=== PATIENT | male | born 1960 | race Caucasian/White ===

== ENCOUNTER → 2016-04-04 | Outpatient (CLI) | payer OTHER ==
[2016-03-01 10:32] VITALS: BP 121/82
[~2016-04-04] MED LIST: ACET500T68 PO; ASPI-482 PO; CELE200C PO; ESOM40CA PO; HYDR-2762 PO; IOHEXOL 180 MG/ML 10 ML VIAL. ONE; methylPREDNISolone ACETATE 40 MG/ML VIAL. ONE; methylPREDNISolone ACETATE 80 MG/ML VIAL. ONE
--- NOTE | 2016-04-05 23:58 | PAIN ---
DATE OF SERVICE: 04/04/2016 DIAGNOSES: Cervical spondylosis with cervical degenerative disk disease and cervical radiculopathy. HISTORY OF PRESENT ILLNESS: The patient is a 56-year-old male who returns for followup status post cervical epidural steroid injections x 2 most recently on 01/10/2016. Patient did very well with this with about 90% improvement for about a month after the injection. The pain has been very slowly increasing at the base of the neck and radiating into the right shoulder and arm since that time ____ very gradual return. The patient reports it is increasing as the day goes on, but is sleeping better at night. The patient reports he has been using his right upper extremity much more easily and freely and without restriction, but it is becoming more noticeable now with pain when he does this. Patient reports his pain is anywhere from a 6 ____ a scale of 10, it is currently 6 on a scale of 10 today. Patient reports no new motor or sensory deficits or other complaints. PHYSICAL EXAMINATION: VITAL SIGNS: The patient blood pressure 141/100, pulse 81, respirations 18, temperature 98.2 degrees Fahrenheit, height is 5 feet 10 inches, weighs 221 pounds. GENERAL: Patient is awake, alert and oriented, appropriate, very pleasant demeanor. HEENT: Head shows normocephalic, atraumatic. Extraocular movements are intact and symmetrical. Oral cavity shows mucous membranes moist and pink. Dentition is intact. NECK: Shows anterior throat supple without palpable lymphadenopathy noted. Swallow reflex is symmetrical. CHEST: Shows normal on inspection. Breath sounds are clear to auscultation bilaterally. HEART: Shows S1 and S2 clear. ABDOMEN: Soft, nontender, nondistended. No palpable organomegaly is noted. No rebound or guarding demonstrated. BACK: Shows spine grossly midline. Cervical paraspinous musculature shows some moderate tenderness to palpation but only diffusely in the lower cervical distribution bilaterally as well as to the superior, medial and lateral trapezius. Again symmetrical without evidence of atrophy or hypertrophy. No asymmetry. No trigger points or radiation demonstrated. EXTREMITIES: Patient's upper extremities show deep tendon reflexes at 2+. The biceps and triceps tendon are equal. 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 Shoulder shrug is strong and intact with some minor pain reported in the right base of the neck and shoulder with resistance but no loss of strength. This is true with abduction of the shoulders at 90 degrees as well pain in the right side but without loss of strength on resistance. PLAN: Options were discussed with the patient at this time. The patient's old chart was reviewed as was his current medication regimen and updated. We will plan on the third cervical epidural steroid injection in this series with fluoroscopic guidance. Risks were again discussed including, but not limited to bleeding, infection, possibility of epidural hematoma, subsequent neurologic compromise, dural punctures, headaches, spinal cord and/or nerve damage, side effects of steroid medication and poor results regarding pain control. The patient understands and wishes to proceed. The patient will return to clinic in approximately 2 weeks for followup, was counseled on return appointment, activity level, and side effects to be aware of. DIAGNOSES: Cervical radiculopathy with cervical degenerative disk disease and cervical spine spondylosis. PROCEDURE: Cervical epidural steroid injection in translaminar approach at the C6-C7 level with C-arm fluoroscopic guidance under sterile prep and drape using local anesthetic. MEDICATIONS INJECTED: Depo-Medrol 120 mg plus 5 mL of preservative free normal saline. CONDITION AT DISCHARGE: Stable. The patient tolerated the procedure well, had no complications. ROLF ARNDT MD DR: YESI/suzette JOB#: [id number] / [id number]
== END | disposition home or self-care (01) ==
LOC: PNCL 10:25
PROVIDERS: ATTEND Anesthesiology
DX: M50.10 Cervical disc disorder with radiculopathy, unspecified cervical region (principal)
CPT/HCPCS: 62321; J1030; J1040

== ENCOUNTER → 2016-07-08 | Outpatient (CLI) | payer OTHER ==
[2016-03-01 10:32] VITALS: BP 121/82
[~2016-07-08] MED LIST changes: -IOHEXOL 180 MG/ML 10 ML VIAL. ONE; -methylPREDNISolone ACETATE 40 MG/ML VIAL. ONE; -methylPREDNISolone ACETATE 80 MG/ML VIAL. ONE
--- NOTE | 2016-07-09 01:24 | PAIN ---
DATE OF SERVICE: 07/08/2016 PROGRESS NOTE FOR PAIN CLINIC DIAGNOSES: 1. Cervical radiculopathy with cervical degenerative disk disease and cervical spondylosis. 2. Lumbar radiculopathy with lumbar degenerative disk disease and lumbar spondylosis. HISTORY OF PRESENT ILLNESS: The patient is a 56-year-old male who returns for followup status post cervical epidural steroid injections, last seen on 04/04/2016. The patient did very well, about 65% improvement. Chief complaint today, however, is low back and right lower extremity pain. The patient has had surgery about 20 years ago in the lumbar spine and is returning the same symptoms in the right posterior gluteus, posterior thigh, lateral thigh, lower leg and across the low back as well as pain in the neck and shoulders, but the pain in the low back and leg is much worse. The patient reports it is an 8 on a scale of 10, his neck is a 5 on a scale of 10. He did have an MRI scan dated 06/27/2016 of the lumbar spine showing previous right laminotomy at L5-S1 with degenerative disk disease and spondylitic disk protrusion at L5-S1 abutting the dural sac surrounding the descending right S1 nerve root, but without compression of the nerve. The patient also has a shallow left inferior foraminal disk protrusion at L4-L5 with mild inferior left foraminal narrowing. The patient reports it is much worse with standing, walking, changing positions, sitting for prolonged periods, has difficulty sleeping with the pain, not the result of any specific injury or accident he has had recently, but ____ gradually gotten worse with daily activities. PHYSICAL EXAMINATION: VITAL SIGNS: The patient's blood pressure 142/106, pulse 81, respirations are 20, temperature 98.3 degrees Fahrenheit, height is 5 feet 10 inches, weight is 217 pounds. GENERAL: The patient is awake, alert, oriented, appropriate, very pleasant demeanor. HEENT: Head shows normocephalic, atraumatic. Extraocular movements are intact and symmetrical. Oral cavity shows mucous membranes moist and pink. Dentition is intact. NECK: Shows anterior throat supple without palpable lymphadenopathy noted. Swallow reflex is symmetrical. Neck shows good rotational motion both laterally as well as extension and flexion without significant increase in pain. CHEST: Shows normal on inspection. Breath sounds clear to auscultation bilaterally. HEART: Shows S1 and S2 clear. ABDOMEN: Soft, nontender, nondistended. No palpable organomegaly is noted. No rebound or guarding demonstrated. BACK: Shows spine grossly in the midline. The well-healed surgical scars noted in the lumbar distribution. Lumbar paraspinous muscle shows some mild tenderness with palpation, but symmetrical on inspection. No radiation of pain, no tenderness over the sacrum or sacroiliac regions. The patient has good rotational motion of the lumbar spine, both laterally greater than 10 degrees right and left as well as extension greater than 10 degrees, forward flexion 45 degrees without pain reported. EXTREMITIES: Lower extremities show deep tendon reflexes at 1+ in the patellar and tendo calcaneus tendons. The patient has well-healed surgical scars over both knees. Motor exam is strong with 5/5 dorsiflexion, extension, quadriceps and hamstring flexion. Peripheral pulses are 1+ posterior tibial and dorsalis pedis pulses. With straight leg raise, the patient shows some mild increase in pain at about 45 degrees raise on the right side with radiation to posterior thigh, this is relieved with knee flexion. Left side is negative. Options were discussed with the patient. The patient's old chart was reviewed as his current medication regimen updated. Current review of systems updated today as well. We will preauthorize the patient for a lumbar caudal approach epidural steroid injection. The patient may benefit from additional cervical injections in the future as well, but his main complaint is the lumbar radiculopathy in the right leg ____ again with MRI scan findings as shown and the patient is not able to decrease his pain significantly with walking and stretching exercises that he has been doing. We will preauthorize for a caudal approach epidural steroid injection. The patient also will follow up with his primary physician regarding his blood pressure as his diastolic is still elevated and he reports he has an appointment coming up with the primary as well. We will wait for preauthorization and proceed with a caudal epidural steroid injection at that time. ROLF ARNDT MD DR: YESI/suzette JOB#: [id number] / [id number]
== END | disposition home or self-care (01) ==
LOC: PNCL 08:22
PROVIDERS: ATTEND Anesthesiology
DX: M47.22 Other spondylosis with radiculopathy, cervical region (principal); M50.10 Cervical disc disorder with radiculopathy, unspecified cervical region; M47.26 Other spondylosis with radiculopathy, lumbar region; M51.16 Intervertebral disc disorders with radiculopathy, lumbar region
CPT/HCPCS: 99212

== ENCOUNTER → 2016-07-30 | Outpatient (CLI) | payer OTHER ==
[2016-03-01 10:32] VITALS: BP 121/82
[~2016-07-30] MED LIST changes: +IOHEXOL 180 MG/ML 10 ML VIAL. ONE; +methylPREDNISolone ACETATE 40 MG/ML VIAL. ONE; +methylPREDNISolone ACETATE 80 MG/ML VIAL. ONE
--- NOTE | 2016-07-31 06:33 | PAIN ---
DATE OF SERVICE: 07/30/2016 PROGRESS NOTE FOR PAIN CLINIC DIAGNOSES: 1. Lumbar radiculopathy with lumbar degenerative disk disease, lumbar spondylosis. 2. Cervical radiculopathy with cervical degenerative disk disease and cervical spondylosis. HISTORY OF PRESENT ILLNESS: The patient is a 56-year-old male who returns for followup status post evaluation and previous cervical epidural steroid injections. The patient is having significant pain in his low back and lower extremities, right greater than left. He has been preauthorized for his caudal approach epidural steroid injections and would like to proceed with that today. The patient is also having some significant pain in the base of his neck and shoulders, also at the back of the head, causing some headaches, increased pain, more in the left shoulder than in the right, but in the upper extremities as it had been previously. The patient reports his pain anywhere from a 9 on a scale of 10 with the neck, to a 7 in his low back and is at its best a 5 in both regions. The patient reports tingling, burning, aching, sharp, radiating both in the neck and shoulder as well as the low back and legs. The patient reports no new motor or sensory deficits; however, no new bowel or bladder incontinence or other complaints. PHYSICAL EXAMINATION: VITAL SIGNS: Today, the patient's blood pressure is 141/97, pulse 68, respirations 18, temperature is 98.2 degrees Fahrenheit, height is 5 feet 10 inches, weight is 221 pounds. GENERAL: The patient is awake, alert, oriented, appropriate, very pleasant demeanor. HEENT: Shows normocephalic, atraumatic. Extraocular movements are intact and symmetrical. Oral cavity, his mucous membranes are moist and pink. Dentition is intact. NECK: Shows anterior throat supple without palpable lymphadenopathy noted. Swallow reflex is symmetrical. CHEST: Shows normal on inspection. Breath sounds clear to auscultation bilaterally. HEART: Shows S1 and S2 clear. No murmurs auscultated. ABDOMEN: Soft, nontender, nondistended. No palpable organomegaly is noted. BACK: Shows spine grossly in the midline. Cervical paraspinous muscles show some moderate tenderness to palpation in the cervical, into the medial and inferior aspect of the paraspinous muscles, also superior medial trapezius bilaterally, slightly worse on the left than the right with palpation, but no radiation. Low back shows well healed surgical scars, some moderate tenderness to palpation in the lower lumbar distribution diffusely in the paraspinous muscles only. EXTREMITIES: Show upper extremity deep tendon reflexes at 2+, lower extremities are 1+ patellar and tendo calcaneus tendons. 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 Lower extremities show 5/5 dorsiflexion, extension, quadriceps and hamstring flexion. PLAN: Options were discussed with the patient. We will proceed with a caudal approach epidural steroid injection today with fluoroscopic guidance. Risks were again discussed including, but not limited to bleeding, infection, possibility of epidural hematoma and subsequent neurological compromise, dural puncture, headaches, spinal cord and/or nerve damage, side effects of steroid medication and poor results regarding pain control. The patient understands and wishes to proceed. The patient will return to clinic in approximately 2 weeks. We discussed treating cervical radicular symptoms at that time. We will preauthorize the patient for a cervical epidural steroid injection for his next visit as well. DIAGNOSIS: Lumbar radiculopathy with lumbar degenerative disk disease, lumbar spondylosis. PROCEDURE: Caudal approach epidural steroid injection using C-arm fluoroscopic guidance under sterile prep and drape using local anesthetic. MEDICATIONS INJECTED: 120 mg Depo-Medrol plus 10 mL preservative-free normal saline and 2 mL Isovue for contrast. CONDITION AT DISCHARGE: Stable. The patient tolerated the procedure well, had no complications. ROLF ARNDT MD DR: YESI/suzette JOB#: [id number] / [id number]
== END | disposition home or self-care (01) ==
LOC: PNCL 09:15
PROVIDERS: ATTEND Anesthesiology
DX: M50.10 Cervical disc disorder with radiculopathy, unspecified cervical region (principal); M51.16 Intervertebral disc disorders with radiculopathy, lumbar region; Z82.49 Family history of ischemic heart disease and other diseases of the circulatory system
CPT/HCPCS: 62323; J1030; J1040

== ENCOUNTER → 2016-08-26 | Outpatient (CLI) | payer OTHER ==
[2016-03-01 10:32] VITALS: BP 121/82
== END | disposition home or self-care (01) ==
LOC: PNCL 08:04
PROVIDERS: ATTEND Anesthesiology
DX: M50.30 Other cervical disc degeneration, unspecified cervical region (principal); M47.812 Spondylosis without myelopathy or radiculopathy, cervical region; Z82.49 Family history of ischemic heart disease and other diseases of the circulatory system
CPT/HCPCS: 62321; J1030; J1040

== ENCOUNTER → 2016-09-10 | Outpatient (CLI) | payer OTHER ==
[2016-03-01 10:32] VITALS: BP 121/82
== END | disposition home or self-care (01) ==
LOC: PNCL 07:33
PROVIDERS: ATTEND Anesthesiology
DX: M51.16 Intervertebral disc disorders with radiculopathy, lumbar region (principal); M47.26 Other spondylosis with radiculopathy, lumbar region; M96.1 Postlaminectomy syndrome, not elsewhere classified; M50.10 Cervical disc disorder with radiculopathy, unspecified cervical region; M47.22 Other spondylosis with radiculopathy, cervical region; Z82.49 Family history of ischemic heart disease and other diseases of the circulatory system
CPT/HCPCS: 62323; J1030; J1040

== ENCOUNTER 2016-09-28 12:46 | Inpatient (IN) | payer OTHER ==
[~2016-09-28] VITALS: Ht 177.8 cm; Wt 97.5 kg
[~2016-09-28 12:46] MED LIST changes: -IOHEXOL 180 MG/ML 10 ML VIAL. ONE; -methylPREDNISolone ACETATE 40 MG/ML VIAL. ONE; -methylPREDNISolone ACETATE 80 MG/ML VIAL. ONE
[2016-09-28 13:46] LABS: BASO # 0.1 x10^3/uL (0.0-0.2); BASO % 1 % (0-3); EOS % 3 % (0-3); HEMATOCRIT 41.4 % (39.0-53.0); LYMPH # 1.8 x10^3/uL (1.0-4.8); LYMPH % 33 % (24-48); MEAN CORPUSCULAR HEMOGLOBIN 32 pg (25-35); MEAN CORPUSCULAR HGB CONC 34 g/dL (31-37); MEAN CORPUSCULAR VOLUME 94 fL (79-100); MONO % 7 % (0-9); NEUT % 57 % (31-73); PLATELET COUNT 252 x10^3/uL (140-400); RED BLOOD COUNT 4.41 x10^6/uL (4.30-5.70); RED CELL DISTRIBUTION WIDTH 13.8 % (11.5-14.5); WHITE BLOOD COUNT 5.5 x10^3/uL (4.0-11.0)
[2016-09-28 13:57] LABS: CALCIUM 8.8 mg/dL (8.5-10.1); GFR 77.9
[2016-09-28 14:03] LABS: INR 0.9 (0.8-1.1); PROTHROMBIN TIME PATIENT 11.6 SEC (11.7-14.0)
[2016-09-28 14:04] LABS: ALBUMIN 4.2 g/dL (3.4-5.0); ALBUMIN/GLOBULIN RATIO 1.3 (1.0-1.7); TOTAL BILIRUBIN 0.3 mg/dL (0.2-1.0); TOTAL PROTEIN 7.5 g/dL (6.4-8.2)
--- NOTE | 2016-09-28 14:15 | RAD ---
Indication right-sided face numbness and tingling in the right arm. Noncontrast images of the head were obtained. No prior imaging of the head is available. The calvarium appears unremarkable. The visualized paranasal sinuses appear normal. There is no subdural or epidural hematoma. There is no mass or midline shift. No hemorrhage is seen. No acute intracranial finding is apparent. IMPRESSION: No acute intracranial finding seen . PQRS Compliance Statement: One or more of the following individualized dose reduction techniques were utilized for this examination: 1. Automated exposure control 2. Adjustment of the mA and/or kV according to patient size 3. Use of iterative reconstruction technique
--- NOTE | 2016-09-28 14:33 | PHYS DOC ---
Past Medical History Past Medical History: Arthritis, GERD, Other Additional Past Medical Histor: DVT Past Surgical History: Knee Replacement, Other Additional Past Surgical Histo: right shoulder, lower back, 2 hand surgeries Alcohol Use: Occasionally Drug Use: None Adult General Chief Complaint Chief Complaint: numbness HPI HPI Patient is a 56 year old male, retired , who presents with a complaint of numbness on the right side of his face. Patient states that about 10:00 today he developed some numbness and tingling of his right arm, no pain. He didn 't think much of it because he has some issues with his back and neck related to pinched nerves. He had a lumbar discectomy in 1997 and occasionally has some numbness and tingling of his right foot and posterior ankle, also sometimes has some weakness of his right leg. He does see someone in the pain management clinic and gets epidural steroid injections. He has some neck pain and arthritis. Then about noon he began to feel that the right side of his face felt "strange" and felt like he had tingling and numbness. This included his forehead, cheek, and lower face. Then he decided to come in and on his way here also noted some tingling and numbness of his left arm and hand. At this time, his bilateral arm and hand tingling and numbness is better or gone but his face feels the same. Patient and his state that he did not have any difficulty with slurred speech, no trouble finding a word, no trouble with his gait during any of this. As mentioned, the patient does have a history of cervical and lumbar nerve issues but has not had any CVA or TIA, has not had any facial symptoms in the past. He did have a blood clot in his right leg after knee surgery in the past. Patient takes aspirin 81 mg, gabapentin and Celebrex for nerve pain daily. He is not on an antihypertensive. PCP Dr. Palomino at [facility] Review of Systems Review of Systems Constitutional: Denies fever or chills [] Eyes: Denies change in visual acuity, redness, or eye pain [] HENT: Denies nasal congestion or sore throat [] Respiratory: Denies cough or shortness of breath [] Cardiovascular: Denies chest pain GI: Denies abdominal pain, nausea, vomiting, bloody stools or diarrhea [] : Denies dysuria or hematuria [] Musculoskeletal: Denies back pain or joint pain [] Integument: Denies rash or skin lesions [] Neurologic: As in history of present illness Allergies Allergies Allergies Coded Allergies Type Severity Reaction Last Updated Verified No Known Drug Allergies 12/28/14 No Physical Exam Physical Exam Constitutional: Well developed, well nourished, no acute distress, non-toxic appearance. Alert, mentating normally, normal speech. Initial blood pressure was 172/104, recheck 134/100 HENT: Normocephalic, atraumatic, bilateral external ears normal, oropharynx moist, nose normal. [] Eyes: EOMI, conjunctiva normal, no discharge. [] Neck: Normal range of motion, no stridor. [] Cardiovascular:Heart rate regular rhythm, no murmur [] Lungs & Thorax: Bilateral breath sounds clear to auscultation [] Abdomen: Bowel sounds normal, soft, no tenderness, no masses, no pulsatile masses. [] Skin: Warm, dry, no erythema, no rash. [] Extremities: No tenderness, no cyanosis, no clubbing, ROM intact, no edema. [] Neurologic: Alert and oriented X 3, normal motor function, normal sensory function, no focal deficits noted. Cranial nerves II through XII intact with the exception that the patient states the right side of his face is numb to light touch including forehead, cheek, and lower face. There is no facial asymmetry. Forehead elevates evenly. Smile is symmetrical. No tongue deviation. Shoulders elevate evenly. No pronator drift. The patient is able to lift both legs independently and hold them up against resistance. Dorsiflexion of the great toe 5 over 5 and equal bilaterally. NIHSS by me is 1. Patient gets a 1 for numbness of the face. There is no numbness of the extremities. There is no strength deficit whatsoever on my testing. Speech is normal. Current Patient Data Vital Signs Vital Signs Date Time Temp Pulse Resp B/P (MAP) Pulse Ox O2 Delivery O2 Flow Rate FiO2 09/28/16 13:24 76 17 134/100 (111) 96 Room Air 09/28/16 12:53 98.4 98.4 Lab Values Laboratory Tests Test 09/28/16 13:32 White Blood Count 5.5 x10^3/uL (4.0-11.0) Red Blood Count 4.41 x10^6/uL (4.30-5.70) Hemoglobin 14.0 g/dL (13.0-17.5) Hematocrit 41.4 % (39.0-53.0) Mean Corpuscular Volume 94 fL (79-100) Mean Corpuscular Hemoglobin 32 pg (25-35) Mean Corpuscular Hemoglobin Concent 34 g/dL (31-37) Red Cell Distribution Width 13.8 % (11.5-14.5) Platelet Count 252 x10^3/uL (140-400) Neutrophils (%) (Auto) 57 % (31-73) Lymphocytes (%) (Auto) 33 % (24-48) Monocytes (%) (Auto) 7 % (0-9) Eosinophils (%) (Auto) 3 % (0-3) Basophils (%) (Auto) 1 % (0-3) Neutrophils # (Auto) 3.2 x10^3uL (1.8-7.7) Lymphocytes # (Auto) 1.8 x10^3/uL (1.0-4.8) Monocytes # (Auto) 0.4 x10^3/uL (0.0-1.1) Eosinophils # (Auto) 0.1 x10^3/uL (0.0-0.7) Basophils # (Auto) 0.1 x10^3/uL (0.0-0.2) Prothrombin Time 11.6 SEC (11.7-14.0) L Prothrombin Time INR 0.9 (0.8-1.1) PTT 28 SEC (24-38) Sodium Level 144 mmol/L (136-145) Potassium Level 4.0 mmol/L (3.5-5.1) Chloride Level 104 mmol/L (98-107) Carbon Dioxide Level 30 mmol/L (21-32) Anion Gap 10 (6-14) Blood Urea Nitrogen 20 mg/dL (8-26) Creatinine 1.0 mg/dL (0.7-1.3) Estimated GFR (Cockcroft-Gault) 77.9 BUN/Creatinine Ratio 20 (6-20) Glucose Level 107 mg/dL (70-99) H Calcium Level 8.8 mg/dL (8.5-10.1) Total Bilirubin 0.3 mg/dL (0.2-1.0) Aspartate Amino Transferase (AST) 25 U/L (15-37) Alanine Aminotransferase (ALT) 43 U/L (16-63) Alkaline Phosphatase 74 U/L (46-116) Troponin I Quantitative < 0.017 ng/mL (0.000-0.055) Total Protein 7.5 g/dL (6.4-8.2) Albumin 4.2 g/dL (3.4-5.0) Albumin/Globulin Ratio 1.3 (1.0-1.7) Laboratory Tests 09/28/16 13:32 Laboratory Tests 09/28/16 13:32 EKG EKG 12-lead EKG read by me. Sinus rhythm. Heart rate 77. There are no acute ST or T wave changes indicative of ischemia or infarction. No STEMI. No rhythm disturbance. 1303 [] Radiology/Procedures Radiology/Procedures CT scan of the head read by the radiologist. No acute findings. [] Course & Med Decision Making Course & Med Decision Making Pertinent Labs and Imaging studies reviewed. (See chart for details) 56-year-old man in good general health presents with symptoms of numbness and tingling which he first noticed in his right arm, then may be his right leg, then the right side of his face, then his left arm and hand. On my evaluation his only numbness and tingling was the right side of his face. There is no strength deficit whatsoever. I discussed with the patient and his that we will check a CT scan and labs, they're agreeable to that. CT scan, labs normal, negative, nonrevealing. I rechecked the patient and he continues to have subjective numbness of the right side of his face but no findings of his right arm or leg or elsewhere. His face continues to be symmetrical without any weakness anywhere. I considered whether this patient would be a thrombolytic candidate and he is not. The patient's only complaint and finding at the time of my evaluation is numbness of the right side of his face, no weakness whatsoever, no speech disturbance, no other finding. NIH is 1. For the complaint of isolated numbness and no actual neurologic deficit I would not consider this patient a thrombolytic candidate if this were to be ischemic in nature. I believe the patient's symptoms may represent a very small CVA or TIA. I discussed with the patient and his admission to the hospital for further evaluation, further testing, neurologic consultation, and in case more symptoms were to develop or symptoms were to worsen area they're agreeable to that plan. I discussed the case with Dr. Sands, [facility]. She will admit the patient. I wrote bridge orders. I discussed the case with Dr. Weaver, neurology. He will see the patient. He recommended a full dose of aspirin which I ordered. He recommended an MRI of the brain which I ordered. [] Dragon Disclaimer Dragon Disclaimer This electronic medical record was generated, in whole or in part, using a voice recognition dictation system. Departure Departure Impression: Primary Impression: CVA (cerebral vascular accident) Disposition: ADMITTED INPATIENT Admitting Physician: Deepak Sands Condition: STABLE Referrals: DELANEY ACEVEDO DO (PCP) SEDRICK HARTLEY MD Sep 28, 2016 14:33
[2016-09-28] MEDS ORDERED: ASPIRIN CHEWABLE 81 MG TABLET. PO ONE (15:15)
--- NOTE | 2016-09-28 16:04 | RAD ---
MRI Brain without contrast History: Right-sided face numbness, question stroke at 10:00 AM, right-sided weakness Technique: Multiplanar, multisequential noncontrast MR imaging was performed of the brain. Contrast: None Comparison: None Findings: There is no evidence of an acute infarct or cytotoxic edema. The ventricles, sulci, and cisterns are within normal limits in size and configuration. There is no significant midline shift, mass effect, or focal abnormal extra-axial fluid collection. Very minimal FLAIR hyperintense signal near the frontal horns may be seen in asymptomatic individuals. Otherwise there is no significant focal signal abnormality of the brain parenchyma allowing for artifact. There is preservation of the major intracranial flow-voids at the skull base. There is minimal thickening of the right mastoid air cells inferiorly.The cerebellar tonsils are normal in location. There is no significant abnormality of the pineal gland or pituitary gland. There is very minimal patchy bilateral ethmoid air cell and left maxillary sinus mucosal thickening. There is preserved marrow signal of the clivus. Impression: 1. There is no evidence of recent infarct or intracranial mass effect, no significant intracranial abnormality. Electronically signed by: Bj Fernandes MD (09/28/2016 4:01 PM) [facility]
[2016-09-28 16:21] VITALS: BP 141/100
--- NOTE | 2016-09-28 16:51 | EKG ---
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
[2016-09-28] MEDS ORDERED: ACET650S19 PO (17:15)
[2016-09-28] MEDS ORDERED: ACET-704 PO (17:19)
[2016-09-28] MEDS ORDERED: GABA-586 PO (17:19)
[2016-09-28] MEDS ORDERED: OMEP20TA63 PO (17:19)
[2016-09-28] MEDS ORDERED: GABA-585 PO (17:19)
--- NOTE | 2016-09-28 18:09 | PDOC1 ---
History and Physical Date of Admission Date of Admission 09/28/16 Identification/Chief Complaint Chief Complaint right arm and facial numbness Problems: Source Source: Chart review, Patient History of Present Illness History of Present Illness HPI Patient is a 56 year old male, retired , chronic back pain post sx, chronic neck pain wo sx but receiving injection comes to ER FOR first time right facial and right arm numbness today. He said he this am, he felt some right arm numbness, with some weakness. Later felt right facial numbness, no headache, vision or hearing loss, no speech or swallow problem. He had a lumbar discectomy in 1997 and occasionally has some numbness and tingling of his right foot and posterior ankle, also sometimes has some weakness of his right leg. He did have a blood clot in his right leg after knee surgery in the past, on baby ASA. head ct, MRI neg. Past Medical History Past Medical History chronic back and neck pain Past Surgical History Past Surgical History: Total knee replacement Family History Family History: Hypertension Social History Smoke: No ALCOHOL: none Drugs: None Current Problem List Problem List Problems Medical Problems: (1) CVA (cerebral vascular accident) Status: Acute Current Medications Current Medications Current Medications Medications (Trade) Dose Ordered Sig/Spencer Start Time Stop Time Status Last Admin Dose Admin Aspirin (Children'S Aspirin) 324 mg 1X ONCE 09/28/16 15:15 09/28/16 15:16 DC 09/28/16 15:08 324 MG Allergies Allergies Allergies Coded Allergies Type Severity Reaction Last Updated Verified No Known Drug Allergies 12/28/14 No ROS Review of System CONSTITUTIONAL: No fever or chills EYES: No recent changes SKIN: No rash or itching CARDIOVASCULAR: No chest pain, syncope, palpitations, or edema RESPIRATORY: No SOB or cough GASTROINTESTINAL: No nausea, vomiting or abdominal pain NEUROLOGICAL: No headaches or weakness ENDOCRINE: No cold or heat intolerance GENITOURINARY: No urgency or frequency of urination MUSCULOSKELETAL: No back pain or joint pain LYMPHATICS: No enlarged lymph nodes PSYCHIATRIC: No anxiety or depression Physical Exam Physical Exam GEN.: No apparent distress. Alert and oriented. HEENT: Head is normocephalic, atraumatic NECK: Supple. LUNGS: Clear to auscultation. HEART: RRR, S1, S2 present. Peripheral pulses intact ABDOMEN: Soft, nontender. Positive bowel sounds. EXTREMITIES: Without any cyanosis. NEUROLOGIC: Normal speech, normal tone. right face and right arm numbness, very mild right arm weakness compared to left side PSYCHIATRIC: Normal affect, normal mood. SKIN: No ulcerations Vitals Vitals Vital Signs Date Time Temp Pulse Resp B/P (MAP) Pulse Ox O2 Delivery O2 Flow Rate FiO2 09/28/16 16:21 98.1 72 20 141/100 (114) 96 Room Air 98.1 Labs Labs Laboratory Tests Test 09/28/16 13:32 White Blood Count 5.5 x10^3/uL (4.0-11.0) Red Blood Count 4.41 x10^6/uL (4.30-5.70) Hemoglobin 14.0 g/dL (13.0-17.5) Hematocrit 41.4 % (39.0-53.0) Mean Corpuscular Volume 94 fL (79-100) Mean Corpuscular Hemoglobin 32 pg (25-35) Mean Corpuscular Hemoglobin Concent 34 g/dL (31-37) Red Cell Distribution Width 13.8 % (11.5-14.5) Platelet Count 252 x10^3/uL (140-400) Neutrophils (%) (Auto) 57 % (31-73) Lymphocytes (%) (Auto) 33 % (24-48) Monocytes (%) (Auto) 7 % (0-9) Eosinophils (%) (Auto) 3 % (0-3) Basophils (%) (Auto) 1 % (0-3) Neutrophils # (Auto) 3.2 x10^3uL (1.8-7.7) Lymphocytes # (Auto) 1.8 x10^3/uL (1.0-4.8) Monocytes # (Auto) 0.4 x10^3/uL (0.0-1.1) Eosinophils # (Auto) 0.1 x10^3/uL (0.0-0.7) Basophils # (Auto) 0.1 x10^3/uL (0.0-0.2) Prothrombin Time 11.6 SEC (11.7-14.0) Prothromb Time International Ratio 0.9 (0.8-1.1) Activated Partial Thromboplast Time 28 SEC (24-38) Sodium Level 144 mmol/L (136-145) Potassium Level 4.0 mmol/L (3.5-5.1) Chloride Level 104 mmol/L (98-107) Carbon Dioxide Level 30 mmol/L (21-32) Anion Gap 10 (6-14) Blood Urea Nitrogen 20 mg/dL (8-26) Creatinine 1.0 mg/dL (0.7-1.3) Estimated GFR (Cockcroft-Gault) 77.9 BUN/Creatinine Ratio 20 (6-20) Glucose Level 107 mg/dL (70-99) Calcium Level 8.8 mg/dL (8.5-10.1) Total Bilirubin 0.3 mg/dL (0.2-1.0) Aspartate Amino Transf (AST/SGOT) 25 U/L (15-37) Alanine Aminotransferase (ALT/SGPT) 43 U/L (16-63) Alkaline Phosphatase 74 U/L (46-116) Troponin I Quantitative < 0.017 ng/mL (0.000-0.055) Total Protein 7.5 g/dL (6.4-8.2) Albumin 4.2 g/dL (3.4-5.0) Albumin/Globulin Ratio 1.3 (1.0-1.7) Laboratory Tests Test 09/28/16 13:32 White Blood Count 5.5 x10^3/uL (4.0-11.0) Red Blood Count 4.41 x10^6/uL (4.30-5.70) Hemoglobin 14.0 g/dL (13.0-17.5) Hematocrit 41.4 % (39.0-53.0) Mean Corpuscular Volume 94 fL (79-100) Mean Corpuscular Hemoglobin 32 pg (25-35) Mean Corpuscular Hemoglobin Concent 34 g/dL (31-37) Red Cell Distribution Width 13.8 % (11.5-14.5) Platelet Count 252 x10^3/uL (140-400) Neutrophils (%) (Auto) 57 % (31-73) Lymphocytes (%) (Auto) 33 % (24-48) Monocytes (%) (Auto) 7 % (0-9) Eosinophils (%) (Auto) 3 % (0-3) Basophils (%) (Auto) 1 % (0-3) Neutrophils # (Auto) 3.2 x10^3uL (1.8-7.7) Lymphocytes # (Auto) 1.8 x10^3/uL (1.0-4.8) Monocytes # (Auto) 0.4 x10^3/uL (0.0-1.1) Eosinophils # (Auto) 0.1 x10^3/uL (0.0-0.7) Basophils # (Auto) 0.1 x10^3/uL (0.0-0.2) Prothrombin Time 11.6 SEC (11.7-14.0) Prothromb Time International Ratio 0.9 (0.8-1.1) Activated Partial Thromboplast Time 28 SEC (24-38) Sodium Level 144 mmol/L (136-145) Potassium Level 4.0 mmol/L (3.5-5.1) Chloride Level 104 mmol/L (98-107) Carbon Dioxide Level 30 mmol/L (21-32) Anion Gap 10 (6-14) Blood Urea Nitrogen 20 mg/dL (8-26) Creatinine 1.0 mg/dL (0.7-1.3) Estimated GFR (Cockcroft-Gault) 77.9 BUN/Creatinine Ratio 20 (6-20) Glucose Level 107 mg/dL (70-99) Calcium Level 8.8 mg/dL (8.5-10.1) Total Bilirubin 0.3 mg/dL (0.2-1.0) Aspartate Amino Transf (AST/SGOT) 25 U/L (15-37) Alanine Aminotransferase (ALT/SGPT) 43 U/L (16-63) Alkaline Phosphatase 74 U/L (46-116) Troponin I Quantitative < 0.017 ng/mL (0.000-0.055) Total Protein 7.5 g/dL (6.4-8.2) Albumin 4.2 g/dL (3.4-5.0) Albumin/Globulin Ratio 1.3 (1.0-1.7) VTE Prophylaxis Ordered VTE Prophylaxis Devices: Yes VTE Pharmacological Prophylaxi: Yes Assessment/Plan Assessment/Plan right facial and right arm numbness, 2/2 neuropathy? chronic neck pain chronic back pain post sx chronic bl leg neuropathy with numbness and some weakness GERD h/o DVT not on AC htn plan: pt not on HTN meds, if BP cont high tmr, WILL add po meds mri brain neg will do cervical MRI cont home meds asa dvt ppx drug tox check lipid panel, vitb12 BETTY MORALES MD Sep 28, 2016 18:09
[2016-09-28] MEDS ORDERED: ACETAMINOPHEN 325 MG TABLET. PO PRN (18:15)
[2016-09-28] MEDS ORDERED: ONDANSETRON PF 4 MG/2 ML VIAL. IV PRN (18:15)
[2016-09-28] MEDS ORDERED: NON FORMULARY ITEM (Gabapentin 300 MG) PO PRN (18:15)
[2016-09-28] MEDS ORDERED: MORPHINE SULFATE 2 MG/ML DISP.SYRIN. IV PRN (18:15)
[2016-09-28] MEDS ORDERED: hydrALAZINE 20 MG/ML VIAL. IVP PRN (18:15)
[2016-09-28] MEDS ORDERED: DOCUSATE SODIUM 100 MG CAPSULE. PO PRN (18:15)
[2016-09-28] MEDS: PANTOPRAZOLE 40 MG TABLET.DR. PO SCH (18:30)
[2016-09-28] MEDS: CELECOXIB 200 MG CAPSULE. PO SCH (18:30)
[2016-09-28] MEDS: ENOXAPARIN 40 MG/0.4 ML SYRINGE. SQ SCH (18:32)
[2016-09-28 19:49] VITALS: BP 131/93
[2016-09-28] MEDS: traMADol 50 MG TABLET PO PRN (20:31)
[2016-09-28] MEDS: GABAPENTIN 300 MG CAPSULE. PO SCH (20:31)
[2016-09-28 23:22] VITALS: BP 120/82
[2016-09-29 00:47] LABS: BARBITURATES NEG (NEG); BENZODIAZEPINES NEG (NEG); CANNABINOIDS NEG (NEG); COCAINE NEG (NEG); METHADONE NEG (NEG); OPIATES NEG (NEG); PHENCYCLIDINE NEG (NEG)
[2016-09-29 03:50] VITALS: BP 136/87
[2016-09-29 05:13] LABS: BASO % 1 % (0-3); EOS % 4 % (0-3); HEMATOCRIT 39.6 % (39.0-53.0); HEMOGLOBIN 13.4 g/dL (13.0-17.5); LYMPH # 1.8 x10^3/uL (1.0-4.8); LYMPH % 44 % (24-48); MEAN CORPUSCULAR HEMOGLOBIN 32 pg (25-35); MEAN CORPUSCULAR HGB CONC 34 g/dL (31-37); MEAN CORPUSCULAR VOLUME 94 fL (79-100); MONO % 10 % (0-9); NEUT % 42 % (31-73); PLATELET COUNT 218 x10^3/uL (140-400); RED BLOOD COUNT 4.23 x10^6/uL (4.30-5.70); RED CELL DISTRIBUTION WIDTH 13.8 % (11.5-14.5); WHITE BLOOD COUNT 4.2 x10^3/uL (4.0-11.0)
[2016-09-29 05:25] LABS: CALCIUM 8.5 mg/dL (8.5-10.1); CREATININE 0.9 mg/dL (0.7-1.3); GFR 87.9; POTASSIUM 4.4 mmol/L (3.5-5.1)
[2016-09-29 05:35] LABS: CHOLESTEROL/HDL RATIO 5.4
[2016-09-29] MEDS: traMADol 50 MG TABLET PO PRN ×3 (05:39→21:11)
[2016-09-29 07:25] VITALS: BP 135/93
[2016-09-29] MEDS: GABAPENTIN 300 MG CAPSULE. PO SCH ×3 (08:32→21:10)
[2016-09-29] MEDS: ASPIRIN ENTERIC COATED 81 MG TABLET.DR. PO SCH (08:32)
[2016-09-29] MEDS: CELECOXIB 200 MG CAPSULE. PO SCH (08:32)
[2016-09-29 10:35] VITALS: BP 128/86
--- NOTE | 2016-09-29 12:11 | PDOC ---
PROGRESS NOTES Chief Complaint Chief Complaint right facial and right arm numbness, 2/2 neuropathy? chronic neck pain chronic back pain post sx chronic bl leg neuropathy with numbness and some weakness GERD h/o DVT not on AC htn HLD plan: mri brain neg will do cervical MRI cont home meds asa dvt ppx drug tox check lipid panel, vitb12 neuro consult pending History of Present Illness History of Present Illness feels bl facial numbness now right arm numbness better no ext weakness Vitals Vitals Vital Signs Date Time Temp Pulse Resp B/P (MAP) Pulse Ox O2 Delivery O2 Flow Rate FiO2 09/29/16 10:35 98.4 79 16 128/86 (100) 96 Room Air 98.4 Physical Exam General: Alert, Oriented X3, Cooperative Heart: Regular rate, Normal S1, Normal S2 Lungs: Clear, Wheezing Abdomen: Normal bowel sounds, Soft Extremities: No clubbing, No cyanosis Skin: No rashes Labs LABS Laboratory Tests Test 09/28/16 13:32 09/28/16 22:40 09/29/16 04:30 White Blood Count 5.5 x10^3/uL (4.0-11.0) 4.2 x10^3/uL (4.0-11.0) Red Blood Count 4.41 x10^6/uL (4.30-5.70) 4.23 x10^6/uL (4.30-5.70) Hemoglobin 14.0 g/dL (13.0-17.5) 13.4 g/dL (13.0-17.5) Hematocrit 41.4 % (39.0-53.0) 39.6 % (39.0-53.0) Mean Corpuscular Volume 94 fL (79-100) 94 fL (79-100) Mean Corpuscular Hemoglobin 32 pg (25-35) 32 pg (25-35) Mean Corpuscular Hemoglobin Concent 34 g/dL (31-37) 34 g/dL (31-37) Red Cell Distribution Width 13.8 % (11.5-14.5) 13.8 % (11.5-14.5) Platelet Count 252 x10^3/uL (140-400) 218 x10^3/uL (140-400) Neutrophils (%) (Auto) 57 % (31-73) 42 % (31-73) Lymphocytes (%) (Auto) 33 % (24-48) 44 % (24-48) Monocytes (%) (Auto) 7 % (0-9) 10 % (0-9) Eosinophils (%) (Auto) 3 % (0-3) 4 % (0-3) Basophils (%) (Auto) 1 % (0-3) 1 % (0-3) Neutrophils # (Auto) 3.2 x10^3uL (1.8-7.7) 1.7 x10^3uL (1.8-7.7) Lymphocytes # (Auto) 1.8 x10^3/uL (1.0-4.8) 1.8 x10^3/uL (1.0-4.8) Monocytes # (Auto) 0.4 x10^3/uL (0.0-1.1) 0.4 x10^3/uL (0.0-1.1) Eosinophils # (Auto) 0.1 x10^3/uL (0.0-0.7) 0.2 x10^3/uL (0.0-0.7) Basophils # (Auto) 0.1 x10^3/uL (0.0-0.2) 0.0 x10^3/uL (0.0-0.2) Prothrombin Time 11.6 SEC (11.7-14.0) Prothromb Time International Ratio 0.9 (0.8-1.1) Activated Partial Thromboplast Time 28 SEC (24-38) Sodium Level 144 mmol/L (136-145) 143 mmol/L (136-145) Potassium Level 4.0 mmol/L (3.5-5.1) 4.4 mmol/L (3.5-5.1) Chloride Level 104 mmol/L (98-107) 105 mmol/L (98-107) Carbon Dioxide Level 30 mmol/L (21-32) 31 mmol/L (21-32) Anion Gap 10 (6-14) 7 (6-14) Blood Urea Nitrogen 20 mg/dL (8-26) 21 mg/dL (8-26) Creatinine 1.0 mg/dL (0.7-1.3) 0.9 mg/dL (0.7-1.3) Estimated GFR (Cockcroft-Gault) 77.9 87.9 BUN/Creatinine Ratio 20 (6-20) Glucose Level 107 mg/dL (70-99) 107 mg/dL (70-99) Calcium Level 8.8 mg/dL (8.5-10.1) 8.5 mg/dL (8.5-10.1) Total Bilirubin 0.3 mg/dL (0.2-1.0) Aspartate Amino Transf (AST/SGOT) 25 U/L (15-37) Alanine Aminotransferase (ALT/SGPT) 43 U/L (16-63) Alkaline Phosphatase 74 U/L (46-116) Troponin I Quantitative < 0.017 ng/mL (0.000-0.055) Total Protein 7.5 g/dL (6.4-8.2) Albumin 4.2 g/dL (3.4-5.0) Albumin/Globulin Ratio 1.3 (1.0-1.7) Urine Opiates Screen Neg (NEG) Urine Methadone Screen Neg (NEG) Urine Barbiturates Neg (NEG) Urine Phencyclidine Screen Neg (NEG) Urine Amphetamine/Methamphetamine Neg (NEG) Urine Benzodiazepines Screen Neg (NEG) Urine Cocaine Screen Neg (NEG) Urine Cannabinoids Screen Neg (NEG) Urine Ethyl Alcohol Neg (NEG) Triglycerides Level 212 mg/dL (0-150) Cholesterol Level 232 mg/dL (0-200) LDL Cholesterol, Calculated 147 mg/dL (0-100) VLDL Cholesterol, Calculated 42 mg/dL (0-40) Non-HDL Cholesterol Calculated 189 mg/dL (0-129) HDL Cholesterol 43 mg/dL (40-60) Cholesterol/HDL Ratio 5.4 Review of Systems Review of Systems no fever, chills, sob or chest pain Assessment and Plan Assessmemt and Plan Problems Medical Problems: (1) CVA (cerebral vascular accident) Status: Acute Problems: Comment Review of Relevant I have reviewed the following items geoffrey (where applicable) has been applied. Labs Laboratory Tests Test 09/28/16 13:32 09/28/16 22:40 09/29/16 04:30 White Blood Count 5.5 x10^3/uL (4.0-11.0) 4.2 x10^3/uL (4.0-11.0) Red Blood Count 4.41 x10^6/uL (4.30-5.70) 4.23 x10^6/uL (4.30-5.70) Hemoglobin 14.0 g/dL (13.0-17.5) 13.4 g/dL (13.0-17.5) Hematocrit 41.4 % (39.0-53.0) 39.6 % (39.0-53.0) Mean Corpuscular Volume 94 fL (79-100) 94 fL (79-100) Mean Corpuscular Hemoglobin 32 pg (25-35) 32 pg (25-35) Mean Corpuscular Hemoglobin Concent 34 g/dL (31-37) 34 g/dL (31-37) Red Cell Distribution Width 13.8 % (11.5-14.5) 13.8 % (11.5-14.5) Platelet Count 252 x10^3/uL (140-400) 218 x10^3/uL (140-400) Neutrophils (%) (Auto) 57 % (31-73) 42 % (31-73) Lymphocytes (%) (Auto) 33 % (24-48) 44 % (24-48) Monocytes (%) (Auto) 7 % (0-9) 10 % (0-9) Eosinophils (%) (Auto) 3 % (0-3) 4 % (0-3) Basophils (%) (Auto) 1 % (0-3) 1 % (0-3) Neutrophils # (Auto) 3.2 x10^3uL (1.8-7.7) 1.7 x10^3uL (1.8-7.7) Lymphocytes # (Auto) 1.8 x10^3/uL (1.0-4.8) 1.8 x10^3/uL (1.0-4.8) Monocytes # (Auto) 0.4 x10^3/uL (0.0-1.1) 0.4 x10^3/uL (0.0-1.1) Eosinophils # (Auto) 0.1 x10^3/uL (0.0-0.7) 0.2 x10^3/uL (0.0-0.7) Basophils # (Auto) 0.1 x10^3/uL (0.0-0.2) 0.0 x10^3/uL (0.0-0.2) Prothrombin Time 11.6 SEC (11.7-14.0) Prothromb Time International Ratio 0.9 (0.8-1.1) Activated Partial Thromboplast Time 28 SEC (24-38) Sodium Level 144 mmol/L (136-145) 143 mmol/L (136-145) Potassium Level 4.0 mmol/L (3.5-5.1) 4.4 mmol/L (3.5-5.1) Chloride Level 104 mmol/L (98-107) 105 mmol/L (98-107) Carbon Dioxide Level 30 mmol/L (21-32) 31 mmol/L (21-32) Anion Gap 10 (6-14) 7 (6-14) Blood Urea Nitrogen 20 mg/dL (8-26) 21 mg/dL (8-26) Creatinine 1.0 mg/dL (0.7-1.3) 0.9 mg/dL (0.7-1.3) Estimated GFR (Cockcroft-Gault) 77.9 87.9 BUN/Creatinine Ratio 20 (6-20) Glucose Level 107 mg/dL (70-99) 107 mg/dL (70-99) Calcium Level 8.8 mg/dL (8.5-10.1) 8.5 mg/dL (8.5-10.1) Total Bilirubin 0.3 mg/dL (0.2-1.0) Aspartate Amino Transf (AST/SGOT) 25 U/L (15-37) Alanine Aminotransferase (ALT/SGPT) 43 U/L (16-63) Alkaline Phosphatase 74 U/L (46-116) Troponin I Quantitative < 0.017 ng/mL (0.000-0.055) Total Protein 7.5 g/dL (6.4-8.2) Albumin 4.2 g/dL (3.4-5.0) Albumin/Globulin Ratio 1.3 (1.0-1.7) Urine Opiates Screen Neg (NEG) Urine Methadone Screen Neg (NEG) Urine Barbiturates Neg (NEG) Urine Phencyclidine Screen Neg (NEG) Urine Amphetamine/Methamphetamine Neg (NEG) Urine Benzodiazepines Screen Neg (NEG) Urine Cocaine Screen Neg (NEG) Urine Cannabinoids Screen Neg (NEG) Urine Ethyl Alcohol Neg (NEG) Triglycerides Level 212 mg/dL (0-150) Cholesterol Level 232 mg/dL (0-200) LDL Cholesterol, Calculated 147 mg/dL (0-100) VLDL Cholesterol, Calculated 42 mg/dL (0-40) Non-HDL Cholesterol Calculated 189 mg/dL (0-129) HDL Cholesterol 43 mg/dL (40-60) Cholesterol/HDL Ratio 5.4 Laboratory Tests Test 09/28/16 13:32 09/28/16 22:40 09/29/16 04:30 White Blood Count 5.5 x10^3/uL (4.0-11.0) 4.2 x10^3/uL (4.0-11.0) Red Blood Count 4.41 x10^6/uL (4.30-5.70) 4.23 x10^6/uL (4.30-5.70) Hemoglobin 14.0 g/dL (13.0-17.5) 13.4 g/dL (13.0-17.5) Hematocrit 41.4 % (39.0-53.0) 39.6 % (39.0-53.0) Mean Corpuscular Volume 94 fL (79-100) 94 fL (79-100) Mean Corpuscular Hemoglobin 32 pg (25-35) 32 pg (25-35) Mean Corpuscular Hemoglobin Concent 34 g/dL (31-37) 34 g/dL (31-37) Red Cell Distribution Width 13.8 % (11.5-14.5) 13.8 % (11.5-14.5) Platelet Count 252 x10^3/uL (140-400) 218 x10^3/uL (140-400) Neutrophils (%) (Auto) 57 % (31-73) 42 % (31-73) Lymphocytes (%) (Auto) 33 % (24-48) 44 % (24-48) Monocytes (%) (Auto) 7 % (0-9) 10 % (0-9) Eosinophils (%) (Auto) 3 % (0-3) 4 % (0-3) Basophils (%) (Auto) 1 % (0-3) 1 % (0-3) Neutrophils # (Auto) 3.2 x10^3uL (1.8-7.7) 1.7 x10^3uL (1.8-7.7) Lymphocytes # (Auto) 1.8 x10^3/uL (1.0-4.8) 1.8 x10^3/uL (1.0-4.8) Monocytes # (Auto) 0.4 x10^3/uL (0.0-1.1) 0.4 x10^3/uL (0.0-1.1) Eosinophils # (Auto) 0.1 x10^3/uL (0.0-0.7) 0.2 x10^3/uL (0.0-0.7) Basophils # (Auto) 0.1 x10^3/uL (0.0-0.2) 0.0 x10^3/uL (0.0-0.2) Prothrombin Time 11.6 SEC (11.7-14.0) Prothromb Time International Ratio 0.9 (0.8-1.1) Activated Partial Thromboplast Time 28 SEC (24-38) Sodium Level 144 mmol/L (136-145) 143 mmol/L (136-145) Potassium Level 4.0 mmol/L (3.5-5.1) 4.4 mmol/L (3.5-5.1) Chloride Level 104 mmol/L (98-107) 105 mmol/L (98-107) Carbon Dioxide Level 30 mmol/L (21-32) 31 mmol/L (21-32) Anion Gap 10 (6-14) 7 (6-14) Blood Urea Nitrogen 20 mg/dL (8-26) 21 mg/dL (8-26) Creatinine 1.0 mg/dL (0.7-1.3) 0.9 mg/dL (0.7-1.3) Estimated GFR (Cockcroft-Gault) 77.9 87.9 BUN/Creatinine Ratio 20 (6-20) Glucose Level 107 mg/dL (70-99) 107 mg/dL (70-99) Calcium Level 8.8 mg/dL (8.5-10.1) 8.5 mg/dL (8.5-10.1) Total Bilirubin 0.3 mg/dL (0.2-1.0) Aspartate Amino Transf (AST/SGOT) 25 U/L (15-37) Alanine Aminotransferase (ALT/SGPT) 43 U/L (16-63) Alkaline Phosphatase 74 U/L (46-116) Troponin I Quantitative < 0.017 ng/mL (0.000-0.055) Total Protein 7.5 g/dL (6.4-8.2) Albumin 4.2 g/dL (3.4-5.0) Albumin/Globulin Ratio 1.3 (1.0-1.7) Urine Opiates Screen Neg (NEG) Urine Methadone Screen Neg (NEG) Urine Barbiturates Neg (NEG) Urine Phencyclidine Screen Neg (NEG) Urine Amphetamine/Methamphetamine Neg (NEG) Urine Benzodiazepines Screen Neg (NEG) Urine Cocaine Screen Neg (NEG) Urine Cannabinoids Screen Neg (NEG) Urine Ethyl Alcohol Neg (NEG) Triglycerides Level 212 mg/dL (0-150) Cholesterol Level 232 mg/dL (0-200) LDL Cholesterol, Calculated 147 mg/dL (0-100) VLDL Cholesterol, Calculated 42 mg/dL (0-40) Non-HDL Cholesterol Calculated 189 mg/dL (0-129) HDL Cholesterol 43 mg/dL (40-60) Cholesterol/HDL Ratio 5.4 Medications Current Medications Aspirin (Children'S Aspirin) 324 mg 1X ONCE PO Last administered on 09/28/16 15:08; Start 09/28/16 at 15:15; Stop 09/28/16 at 15:16; Status DC Aspirin (Ecotrin) 81 mg DAILY08 PO Last administered on 09/29/16 08:32; Start 09/29/16 at 08:00 Celecoxib (CeleBREX) 200 mg DAILY PO Last administered on 09/29/16 08:32; Start 09/28/16 at 18:30 Non-Formulary Medication 300 mg PRN TID PRN PO PAIN; Start 09/28/16 at 18:15; Stop 09/28/16 at 18:15; Status DC Pantoprazole Sodium (Protonix) 40 mg DAILYBFRSUP PO ; Start 09/28/16 at 18:30 Acetaminophen (Tylenol) 650 mg PRN Q6HRS PRN PO FEVER Last administered on 03:09; Start 09/28/16 at 18:15 Ondansetron HCl (Zofran) 4 mg PRN Q6HRS PRN IV NAUSEA/VOMITING; Start 09/28/16 at 18:15 Morphine Sulfate 2 mg PRN Q2HR PRN IV PAIN; Start 09/28/16 at 18:15 Tramadol HCl (Ultram) 50 mg PRN Q6HRS PRN PO PAIN Last administered on 05:39; Start 09/28/16 at 18:15 Hydralazine HCl (Apresoline) 10 mg PRN Q4HRS PRN IVP ELEVATED BP, SEE COMMENTS ; Start 09/28/16 at 18:15 Docusate Sodium (Colace) 100 mg PRN DAILY PRN PO CONSTIPATION; Start 09/28/16 at 18:15 Enoxaparin Sodium (Lovenox 40mg Syringe) 40 mg Q24H SQ Last administered on 09/28 18:32; Start 09/28/16 at 18:30 Gabapentin (Neurontin) 300 mg TID PO Last administered on 09/29/16 08:32; Start 09/28/16 at 21:00 Active Scripts Active Reported Tylenol With Codeine #3 Tablet (Acetaminophen/Codeine Phosphate) 1 Each Tablet 1 Tab PO PRN DAILY PRN Gabapentin 300 Mg Capsule 300 Mg PO PRN TID PRN Gabapentin 100 Mg Capsule 100 Mg PO PRN TID PRN Prilosec Otc (Omeprazole Magnesium) 20 Mg Tablet. 40 Mg PO DAILYBFRSUP Acetaminophen 650 Mg/20.3 Ml Solution 650 Mg PO PRN Q6HRS PRN Aspir 81 (Aspirin) 81 Mg Tablet. 1 Tab PO DAILY Celebrex (Celecoxib) 200 Mg Capsule 1 Cap PO DAILY Vitals/I & O Vital Sign - Last 24 Hours 09/28/16 09/28/16 09/28/16 09/28/16 12:53 13:24 16:00 16:21 Temp 98.4 98.1 98.4 98.1 Pulse 83 76 72 Resp 17 17 20 B/P (MAP) 172/104 (126) 134/100 (111) 141/100 (114) Pulse Ox 98 96 96 O2 Delivery Room Air Room Air Room Air Room Air 09/28/16 09/28/16 09/28/16 09/28/16 16:21 19:30 19:49 20:31 Temp 98.1 98.3 98.1 98.3 Pulse 72 74 Resp 20 18 B/P (MAP) 141/100 (114) 131/93 (106) Pulse Ox 96 95 95 O2 Delivery Room Air Room Air Room Air Room Air 09/28/16 09/29/16 09/29/16 09/29/16 23:22 03:50 05:39 06:41 Temp 97.9 97.8 97.9 97.8 Pulse 61 78 Resp 18 16 B/P (MAP) 120/82 (95) 136/87 (103) Pulse Ox 96 97 97 97 O2 Delivery Room Air Room Air Room Air Room Air 09/29/16 09/29/16 09/29/16 07:25 08:00 10:35 Temp 97.9 98.4 97.9 98.4 Pulse 80 79 Resp 16 16 B/P (MAP) 135/93 (107) 128/86 (100) Pulse Ox 95 96 O2 Delivery Room Air Room Air Room Air Intake and Output 09/28/16 09/28/16 09/29/16 15:00 23:00 07:00 Intake Total 200 ml Output Total 200 ml Balance 200 ml -200 ml BETTY MORALES MD Sep 29, 2016 12:11
[2016-09-29 14:39] VITALS: BP 137/90
--- NOTE | 2016-09-29 14:57 | RAD ---
Indication TIA. Grayscale color Doppler and spectral imaging was performed. The examination was targeted to the carotid bifurcations. On the right there is no significant plaquing. Color Doppler images do not suggest significant turbulence. The common carotid waveform and velocities are normal. The external carotid has a normal appearance. The internal carotid waveform and velocities are normal. The vertebral is patent. The subclavian artery is unremarkable. On the left there is no significant plaquing. The color Doppler images do not suggest significant turbulence. The common carotid waveform and velocities are normal. The external carotid has a normal appearance. The internal carotid waveform and velocities are normal. The vertebral is patent and demonstrates normal directional flow. The subclavian artery is unremarkable. IMPRESSION: No evidence of hemodynamically significant stenosis at either carotid bifurcation. Stenosis 0-50%. Note: Stenosis calculations for CT, MR and conventional angiography are based upon determination of the distal ICA diameter in accordance with the NASCET methodology. Stenosis calculations for doppler studies are derived from validated velocity criteria which are known to correlate with NASCET methodology of determining stenosis.
[2016-09-29] MEDS: PANTOPRAZOLE 40 MG TABLET.DR. PO SCH (16:54)
[2016-09-29] MEDS: ENOXAPARIN 40 MG/0.4 ML SYRINGE. SQ SCH (16:59)
[2016-09-29 19:49] VITALS: BP 141/95
[2016-09-29 23:21] VITALS: BP 125/86
--- NOTE | 2016-09-29 23:23 | CONS ---
DATE OF CONSULTATION: 09/29/2016 ATTENDING PHYSICIAN: Magalie Sands M.D. REASON FOR CONSULTATION: Stroke symptoms. HISTORY OF PRESENT ILLNESS: The patient is a 56-year-old right-handed male who noticed some right facial numbness and arm numbness, starting yesterday. The symptoms improved. The patients states that last night symptoms shifted over to the left face and arm. He has longstanding neck pain and bilateral arm numbness off and on, but it has never involved the face. He also has had some low back pain. There is no history of stroke, seizure, or head injury. He has not figured out any inciting or mitigating features except that the cervical spine pain has been improved with epidural injections. He also has lumbar pain as already stated, and a recent lumbar MRI did show L4-L5 and L5-S1 disk disease. He is being referred to a neurosurgeon. PAST MEDICAL HISTORY: Hypertension. Negative for diabetes and he states that he has had normal cholesterol levels in the past. PAST SURGICAL HISTORY: He has had numerous orthopedic surgeries as well as lumbar spine surgery. ALLERGIES: None known. MEDICATIONS: I have reviewed his list. FAMILY HISTORY: Parents of old age. SOCIAL HISTORY: . Occasional alcohol. No tobacco. REVIEW OF SYSTEMS: No fevers, chills, weight loss, dyspnea, angina, hematochezia, melena, dysuria. A 14-point review systems is otherwise negative. PHYSICAL EXAMINATION: GENERAL: Well-developed, well-nourished white male in no acute distress. HEENT: Normocephalic and atraumatic. NECK: Supple without bruit. NEUROLOGIC: Mental status is intact. Cranial nerve examination reveals full visual conrad to confrontation, equally reactive pupils, intact extraocular movements, and there is no facial asymmetry. Palate elevates and tongue protrudes in midline. Reflexes are 1+ with flexor plantar responses. Strength is 5/5. Lvuvqi-zdxp-wlajth is intact. Gait is normal. Sensory exam is intact for light touch and pinprick. IMAGING DATA: I reviewed his MRI of the brain, which shows no abnormality. IMPRESSION: Symptoms are worrisome for transient ischemic attack, but most likely this is referred symptoms from his cervical spondylosis. Note that symptoms have been bilateral. Stroke is much less likely as is transient ischemic attack. Note also that he is already on a daily aspirin and his cholesterol has been normal. RECOMMENDATIONS: 1. Agree with cervical MRI. 2. Echocardiogram. 3. Carotid Dopplers. 4. Continue aspirin. 5. Aim for discharge tomorrow. Thank you for letting me help with the patient's care. RICHARD VELEZ MD DR: ANDRES/suzette JOB#: [id number] / [id number] [place]
[2016-09-30 03:33] VITALS: BP 114/81
--- NOTE | 2016-09-30 04:02 | ACF ---
Admission Forms Criteria TELEMETRY CARE Telemetry Admission Guidelines (Place 'X' for any and all applicable criteria): Admission to telemetry [A] may be indicated for ANY ONE of the following(1)(2)(3 )(4)(5): [ ]I. Cardiac disease, including ANY ONE of the following (9)(10)(11)(12)(13 ): [ ]a) Postacute OR [ ]b) Low-risk patients with ST-segment elevation OR who have undergone successful percutaneous coronary intervention [ ]c) Unstable angina [ ]d) Suspected OR (until it is ruled out) [ ]e) Post cardiac surgery (first 48 to 72 hours unless complications occur) [ ]f) Acute arrhythmias (including significant tachycardia or bradycardia) [B] [ ]g) Firing of an implantable cardioverter defibrillator [C] [ ]h) Suspected pacemaker or implantable cardioverter defibrillator malfunction (10) [ ]i) New administration or adjustment of an antiarrhythmic drug [D ] [ ]j) Child admitted for acute congestive heart failure [ ]j) Long QT syndrome [ ]k) Advanced heart block (eg, second-degree Mobitz type II, third- degree heart block) [ ]l) Acute myocarditis or pericarditis [ ]m) Short-term (ambulatory or inpatient) monitoring after a cardiac procedure as indicated by ANY ONE of the following [E]: [ ]i) Electrophysiologic studies [ ]ii) Percutaneous coronary intervention with stent placement [ ]iii) Pacemaker placement with cardiac conduction defect [ ]iv) Implantable cardiac defibrillator placement [ ]II. Drug overdose or poisoning with substance that causes arrhythmias or QT prolongation (eg, phenothiazines, sympathomimetic agents, cyclic antidepressants, digitalis, antiarrhythmic drugs)(15) [ ]III. Short-term (ambulatory or inpatient) monitoring after therapeutic or diagnostic procedure requiring conscious sedation or anesthesia (eg, endoscopy, elective cardioversion) [X ]IV. Acute cerebrovascular even[F](18) [ ]V. Massive blood transfusion (eg, at least 10 units of packed red blood cells in 24 hours) [ ]. Variceal bleeding after endoscopy, sclerotherapy, or IV vasopressin [ ]VII. Uncorrected electrolyte abnormalities associated with an increased risk of dangerous arrhythmia [G]; examples include [ ]a) Hyperkalemia with attributable ECG changes [ ]b) Potassium greater than 6.5 mmol/L (mEq/L) in a patient without history of chronic renal disease [ ]c) Prolonged QT attributed to hypokalemia, hypomagnesemia, or hypocalcemia [ ]VIII.Unexplained syncope or other neurologic event suspected of being due to arrhythmia due to a finding that increases risk; examples include(19)(20)(21): [ ]a) High-risk ECG findings (eg, bifascicular block, bradycardia, abnormal QT interval, ventricular pre- excitation) [ ]b) History of previous syncope due to arrhythmia [ ]c) Abnormal ventricular function (eg, reduced ejection fraction ) [ ]d) Exertional or supine syncope [ ]e) Concerning syncope characteristics (eg, sudden loss of consciousness without prodrome) [ ]f) Family history of sudden [ ]g) Use of arrhythmogenic medication [ ]h) Suspected cardiac ischemia [ ]i) Known channelopathy (eg, long QT syndrome, Brugada syndrome, or catecholaminergic paroxysmal ventricular tachycardia) [ ]j) Known structural heart disease (eg, hypertrophic cardiomyopathy , severe valvular disease) [ ]k) Palpitations preceding syncope The original [employer] content created by [employer] has been revised. The portions of the content which have been revised are identified through the use of italic text or in bold, and [email or web address] has neither reviewed nor approved the modified material. All other unmodified content is copyright [employer]. Please see references footnoted in the original [employer] edition 2016 Admission Criteria Met?: Yes MASSIMO GREER Sep 30, 2016 04:02
[2016-09-30 07:00] VITALS: BP 143/93
[2016-09-30] MEDS: GABAPENTIN 300 MG CAPSULE. PO SCH (07:59)
[2016-09-30] MEDS: CELECOXIB 200 MG CAPSULE. PO SCH (07:59)
[2016-09-30] MEDS: traMADol 50 MG TABLET PO PRN (07:59)
[2016-09-30] MEDS: ASPIRIN ENTERIC COATED 81 MG TABLET.DR. PO SCH (07:59)
--- NOTE | 2016-09-30 10:00 | PDOC ---
PROGRESS NOTES Assessment Problems Medical Problems: (1) CVA (cerebral vascular accident) Status: Acute Symptoms are worrisome for transient ischemic attack, but most likely this is referred symptoms from his cervical spondylosis. Note that symptoms have been bilateral. Stroke is much less likely as is transient ischemic attack. Note also that he is already on a daily aspirin and his cholesterol has been normal. Plan Await cervical MRI, scanner was not working yesterday. Awake echocardiogram Continue aspirin. Aim for discharge today, and he can have MRI of cervical spine as outpatient if our scanner is not working. Subjective Still has a little bit of numbness in the hands and continued neck pain. Also, his chronic back pain is worse after sleeping in the hospital bed. Objective Vital Signs Date Time Temp Pulse Resp B/P (MAP) Pulse Ox O2 Delivery O2 Flow Rate FiO2 09/30/16 09:01 93 Room Air 09/30/16 07:00 98.1 84 18 143/93 (110) 98.1 Intake and Output 09/30/16 07:00 Intake Total 1040 ml Output Total 2 ml Balance 1038 ml Intake Oral 1040 ml Output Urine Total 2 ml # Voids 7 # Bowel Movements 1 PHYSICAL EXAM Alert. Oriented to time, place and person. PERRL. EOMI. CN: no focal findings. Muscle tone: normal. Muscle strength: 5/5 DTR: 2+ Plantar reflex: flexor Gait: not examined in bed. Sensory exam: no abnormal findings. No cerebellar signs elicited. Review of Relevant I have reviewed the following items geoffrey (where applicable) has been applied. Labs Laboratory Tests Test 09/28/16 13:32 09/28/16 18:00 09/28/16 22:40 09/29/16 04:30 White Blood Count 5.5 x10^3/uL (4.0-11.0) 4.2 x10^3/uL (4.0-11.0) Red Blood Count 4.41 x10^6/uL (4.30-5.70) 4.23 x10^6/uL (4.30-5.70) Hemoglobin 14.0 g/dL (13.0-17.5) 13.4 g/dL (13.0-17.5) Hematocrit 41.4 % (39.0-53.0) 39.6 % (39.0-53.0) Mean Corpuscular Volume 94 fL (79-100) 94 fL (79-100) Mean Corpuscular Hemoglobin 32 pg (25-35) 32 pg (25-35) Mean Corpuscular Hemoglobin Concent 34 g/dL (31-37) 34 g/dL (31-37) Red Cell Distribution Width 13.8 % (11.5-14.5) 13.8 % (11.5-14.5) Platelet Count 252 x10^3/uL (140-400) 218 x10^3/uL (140-400) Neutrophils (%) (Auto) 57 % (31-73) 42 % (31-73) Lymphocytes (%) (Auto) 33 % (24-48) 44 % (24-48) Monocytes (%) (Auto) 7 % (0-9) 10 % (0-9) Eosinophils (%) (Auto) 3 % (0-3) 4 % (0-3) Basophils (%) (Auto) 1 % (0-3) 1 % (0-3) Neutrophils # (Auto) 3.2 x10^3uL (1.8-7.7) 1.7 x10^3uL (1.8-7.7) Lymphocytes # (Auto) 1.8 x10^3/uL (1.0-4.8) 1.8 x10^3/uL (1.0-4.8) Monocytes # (Auto) 0.4 x10^3/uL (0.0-1.1) 0.4 x10^3/uL (0.0-1.1) Eosinophils # (Auto) 0.1 x10^3/uL (0.0-0.7) 0.2 x10^3/uL (0.0-0.7) Basophils # (Auto) 0.1 x10^3/uL (0.0-0.2) 0.0 x10^3/uL (0.0-0.2) Prothrombin Time 11.6 SEC (11.7-14.0) Prothromb Time International Ratio 0.9 (0.8-1.1) Activated Partial Thromboplast Time 28 SEC (24-38) Sodium Level 144 mmol/L (136-145) 143 mmol/L (136-145) Potassium Level 4.0 mmol/L (3.5-5.1) 4.4 mmol/L (3.5-5.1) Chloride Level 104 mmol/L (98-107) 105 mmol/L (98-107) Carbon Dioxide Level 30 mmol/L (21-32) 31 mmol/L (21-32) Anion Gap 10 (6-14) 7 (6-14) Blood Urea Nitrogen 20 mg/dL (8-26) 21 mg/dL (8-26) Creatinine 1.0 mg/dL (0.7-1.3) 0.9 mg/dL (0.7-1.3) Estimated GFR (Cockcroft-Gault) 77.9 87.9 BUN/Creatinine Ratio 20 (6-20) Glucose Level 107 mg/dL (70-99) 107 mg/dL (70-99) Calcium Level 8.8 mg/dL (8.5-10.1) 8.5 mg/dL (8.5-10.1) Total Bilirubin 0.3 mg/dL (0.2-1.0) Aspartate Amino Transf (AST/SGOT) 25 U/L (15-37) Alanine Aminotransferase (ALT/SGPT) 43 U/L (16-63) Alkaline Phosphatase 74 U/L (46-116) Troponin I Quantitative < 0.017 ng/mL (0.000-0.055) Total Protein 7.5 g/dL (6.4-8.2) Albumin 4.2 g/dL (3.4-5.0) Albumin/Globulin Ratio 1.3 (1.0-1.7) Nasal Screen MRSA (PCR) Negative (Negative) Urine Opiates Screen Neg (NEG) Urine Methadone Screen Neg (NEG) Urine Barbiturates Neg (NEG) Urine Phencyclidine Screen Neg (NEG) Urine Amphetamine/Methamphetamine Neg (NEG) Urine Benzodiazepines Screen Neg (NEG) Urine Cocaine Screen Neg (NEG) Urine Cannabinoids Screen Neg (NEG) Urine Ethyl Alcohol Neg (NEG) Triglycerides Level 212 mg/dL (0-150) Cholesterol Level 232 mg/dL (0-200) LDL Cholesterol, Calculated 147 mg/dL (0-100) VLDL Cholesterol, Calculated 42 mg/dL (0-40) Non-HDL Cholesterol Calculated 189 mg/dL (0-129) HDL Cholesterol 43 mg/dL (40-60) Cholesterol/HDL Ratio 5.4 Medications Current Medications Aspirin (Children'S Aspirin) 324 mg 1X ONCE PO Last administered on 09/28/16 15:08; Start 09/28/16 at 15:15; Stop 09/28/16 at 15:16; Status DC Aspirin (Ecotrin) 81 mg DAILY08 PO Last administered on 09/30/16 07:59; Start 09/29/16 at 08:00 Celecoxib (CeleBREX) 200 mg DAILY PO Last administered on 09/30/16 07:59; Start 09/28/16 at 18:30 Non-Formulary Medication 300 mg PRN TID PRN PO PAIN; Start 09/28/16 at 18:15; Stop 09/28/16 at 18:15; Status DC Pantoprazole Sodium (Protonix) 40 mg DAILYBFRSUP PO Last administered on 16:54; Start 09/28/16 at 18:30 Acetaminophen (Tylenol) 650 mg PRN Q6HRS PRN PO FEVER Last administered on 03:09; Start 09/28/16 at 18:15 Ondansetron HCl (Zofran) 4 mg PRN Q6HRS PRN IV NAUSEA/VOMITING; Start 09/28/16 at 18:15 Morphine Sulfate 2 mg PRN Q2HR PRN IV PAIN; Start 09/28/16 at 18:15 Tramadol HCl (Ultram) 50 mg PRN Q6HRS PRN PO PAIN Last administered on 07:59; Start 09/28/16 at 18:15 Hydralazine HCl (Apresoline) 10 mg PRN Q4HRS PRN IVP ELEVATED BP, SEE COMMENTS ; Start 09/28/16 at 18:15 Docusate Sodium (Colace) 100 mg PRN DAILY PRN PO CONSTIPATION; Start 09/28/16 at 18:15 Enoxaparin Sodium (Lovenox 40mg Syringe) 40 mg Q24H SQ Last administered on 09/28 18:32; Start 09/28/16 at 18:30 Gabapentin (Neurontin) 300 mg TID PO Last administered on 09/30/16 07:59; Start 09/28/16 at 21:00 Active Scripts Active Reported Tylenol With Codeine #3 Tablet (Acetaminophen/Codeine Phosphate) 1 Each Tablet 1 Tab PO PRN DAILY PRN Gabapentin 300 Mg Capsule 300 Mg PO PRN TID PRN Gabapentin 100 Mg Capsule 100 Mg PO PRN TID PRN Prilosec Otc (Omeprazole Magnesium) 20 Mg Tablet. 40 Mg PO DAILYBFRSUP Acetaminophen 650 Mg/20.3 Ml Solution 650 Mg PO PRN Q6HRS PRN Aspir 81 (Aspirin) 81 Mg Tablet. 1 Tab PO DAILY Celebrex (Celecoxib) 200 Mg Capsule 1 Cap PO DAILY Vitals/I & O Vital Sign - Last 24 Hours 09/29/16 09/29/16 09/29/16 09/29/16 10:35 14:39 15:07 19:49 Temp 98.4 98.2 98.0 98.4 98.2 98.0 Pulse 79 72 76 Resp 16 18 18 B/P (MAP) 128/86 (100) 137/90 (106) 141/95 (110) Pulse Ox 96 95 96 97 O2 Delivery Room Air Room Air Room Air Room Air 09/29/16 09/29/16 09/30/16 09/30/16 20:00 23:21 03:33 07:00 Temp 97.5 97.7 98.1 97.5 97.7 98.1 Pulse 59 77 84 Resp 18 18 18 B/P (MAP) 125/86 (99) 114/81 (92) 143/93 (110) Pulse Ox 97 97 93 O2 Delivery Room Air Room Air Room Air Room Air 09/30/16 09/30/16 09/30/16 07:59 08:00 09:01 Pulse Ox 93 93 O2 Delivery Room Air Room Air Room Air Intake and Output 09/29/16 09/29/16 09/30/16 15:00 23:00 07:00 Intake Total 240 ml 800 ml Output Total 2 ml Balance 240 ml 798 ml Images Carotids: IMPRESSION: No evidence of hemodynamically significant stenosis at either carotid bifurcation. Stenosis 0-50%. RICHARD VELEZ MD Sep 30, 2016 10:00
[2016-09-30 10:40] VITALS: BP 134/86
--- NOTE | 2016-09-30 11:00 | PDOC3 ---
Discharge Summary Visit Information Date of Admission: Sep 28, 2016 Date of Discharge: Sep 30, 2016 Admitting Diagnosis Comment: cERVICAL NECK PAIN WITH BILATERAL ARM NEUROPATHY chronic neck pain chronic back pain post sx chronic bACK PAIN WITH leg neuropathy GERD h/o DVT not on AC htn HLD Final Diagnosis Problems Medical Problems: (1) CVA (cerebral vascular accident) Status: Acute Brief Hospital Course Allergies Allergies Coded Allergies Type Severity Reaction Last Updated Verified No Known Drug Allergies 12/28/14 No Vital Signs Vital Signs Date Time Temp Pulse Resp B/P (MAP) Pulse Ox O2 Delivery O2 Flow Rate FiO2 09/30/16 09:01 93 Room Air 09/30/16 07:00 98.1 84 18 143/93 (110) 98.1 Lab Results Laboratory Tests Test 09/28/16 13:32 09/28/16 18:00 09/28/16 22:40 09/29/16 04:30 White Blood Count 5.5 x10^3/uL (4.0-11.0) 4.2 x10^3/uL (4.0-11.0) Red Blood Count 4.41 x10^6/uL (4.30-5.70) 4.23 x10^6/uL (4.30-5.70) Hemoglobin 14.0 g/dL (13.0-17.5) 13.4 g/dL (13.0-17.5) Hematocrit 41.4 % (39.0-53.0) 39.6 % (39.0-53.0) Mean Corpuscular Volume 94 fL (79-100) 94 fL (79-100) Mean Corpuscular Hemoglobin 32 pg (25-35) 32 pg (25-35) Mean Corpuscular Hemoglobin Concent 34 g/dL (31-37) 34 g/dL (31-37) Red Cell Distribution Width 13.8 % (11.5-14.5) 13.8 % (11.5-14.5) Platelet Count 252 x10^3/uL (140-400) 218 x10^3/uL (140-400) Neutrophils (%) (Auto) 57 % (31-73) 42 % (31-73) Lymphocytes (%) (Auto) 33 % (24-48) 44 % (24-48) Monocytes (%) (Auto) 7 % (0-9) 10 % (0-9) Eosinophils (%) (Auto) 3 % (0-3) 4 % (0-3) Basophils (%) (Auto) 1 % (0-3) 1 % (0-3) Neutrophils # (Auto) 3.2 x10^3uL (1.8-7.7) 1.7 x10^3uL (1.8-7.7) Lymphocytes # (Auto) 1.8 x10^3/uL (1.0-4.8) 1.8 x10^3/uL (1.0-4.8) Monocytes # (Auto) 0.4 x10^3/uL (0.0-1.1) 0.4 x10^3/uL (0.0-1.1) Eosinophils # (Auto) 0.1 x10^3/uL (0.0-0.7) 0.2 x10^3/uL (0.0-0.7) Basophils # (Auto) 0.1 x10^3/uL (0.0-0.2) 0.0 x10^3/uL (0.0-0.2) Prothrombin Time 11.6 SEC (11.7-14.0) Prothromb Time International Ratio 0.9 (0.8-1.1) Activated Partial Thromboplast Time 28 SEC (24-38) Sodium Level 144 mmol/L (136-145) 143 mmol/L (136-145) Potassium Level 4.0 mmol/L (3.5-5.1) 4.4 mmol/L (3.5-5.1) Chloride Level 104 mmol/L (98-107) 105 mmol/L (98-107) Carbon Dioxide Level 30 mmol/L (21-32) 31 mmol/L (21-32) Anion Gap 10 (6-14) 7 (6-14) Blood Urea Nitrogen 20 mg/dL (8-26) 21 mg/dL (8-26) Creatinine 1.0 mg/dL (0.7-1.3) 0.9 mg/dL (0.7-1.3) Estimated GFR (Cockcroft-Gault) 77.9 87.9 BUN/Creatinine Ratio 20 (6-20) Glucose Level 107 mg/dL (70-99) 107 mg/dL (70-99) Calcium Level 8.8 mg/dL (8.5-10.1) 8.5 mg/dL (8.5-10.1) Total Bilirubin 0.3 mg/dL (0.2-1.0) Aspartate Amino Transf (AST/SGOT) 25 U/L (15-37) Alanine Aminotransferase (ALT/SGPT) 43 U/L (16-63) Alkaline Phosphatase 74 U/L (46-116) Troponin I Quantitative < 0.017 ng/mL (0.000-0.055) Total Protein 7.5 g/dL (6.4-8.2) Albumin 4.2 g/dL (3.4-5.0) Albumin/Globulin Ratio 1.3 (1.0-1.7) Nasal Screen MRSA (PCR) Negative (Negative) Urine Opiates Screen Neg (NEG) Urine Methadone Screen Neg (NEG) Urine Barbiturates Neg (NEG) Urine Phencyclidine Screen Neg (NEG) Urine Amphetamine/Methamphetamine Neg (NEG) Urine Benzodiazepines Screen Neg (NEG) Urine Cocaine Screen Neg (NEG) Urine Cannabinoids Screen Neg (NEG) Urine Ethyl Alcohol Neg (NEG) Triglycerides Level 212 mg/dL (0-150) Cholesterol Level 232 mg/dL (0-200) LDL Cholesterol, Calculated 147 mg/dL (0-100) VLDL Cholesterol, Calculated 42 mg/dL (0-40) Non-HDL Cholesterol Calculated 189 mg/dL (0-129) HDL Cholesterol 43 mg/dL (40-60) Cholesterol/HDL Ratio 5.4 Brief Hospital Course Mr. Quinteros is a 56 old male with long standing hx neck pain, had sx in the past, comes in bec this time accompanied by bilateral facial numbness and bilateral UE numbness, MRI brain and CArotid US and CXR neg, NEuro exam NO FNDs, NOt a stroke ON asa at home. CO managed with neuro MRI cervical spine ordered but unfortunately MRI down. AGreeable to have it done as OP. PT seen and examined Dwayne RN, 2 visits, dw too at [facility] Dc time 31 mins > 50% counselling, cumultaive time Discharge Information Condition at Discharge: Improved, Stable Disposition/Orders: D/C to Home Scheduled Aspirin (Aspir 81), 1 TAB PO DAILY, (Reported) Celecoxib (Celebrex), 1 CAP PO DAILY, (Reported) Omeprazole Magnesium (Prilosec Otc), 40 MG PO DAILYBFRSUP, (Reported) Scheduled PRN Acetaminophen (Acetaminophen), 650 MG PO PRN Q6HRS PRN for PAIN, (Reported) Acetaminophen With Codeine (Tylenol With Codeine #3 Tablet), 1 TAB PO PRN DAILY PRN for PAIN, (Reported) Gabapentin (Gabapentin), 100 MG PO PRN TID PRN for PAIN, (Reported) Gabapentin (Gabapentin), 300 MG PO PRN TID PRN for PAIN, (Reported) Discontinued Medications Acetaminophen (Acetaminophen), 1 TAB PO Q6HRS PRN for PAIN, (Reported) Discontinued Reason: Prescription changed Esomeprazole Magnesium (Nexium Capsule), 1 CAP PO DAILY, (Reported) Hydrocodone Bit/Acetaminophen (Hydrocodone-Apap 7.5-325 ), 1 TAB PO PRN Q6HRS PRN for PAIN, (Reported) MARSHALL ALONZO MD Sep 30, 2016 11:00
--- NOTE | 2016-09-30 13:12 | CARD ---
APPROVED REPORT EXAM: Two-dimensional and M-mode echocardiogram with Doppler and color Doppler. Other Information Quality : GoodHR: 63bpm Rhythm : NSR INDICATION CVA/TIA Echo Enhancing Agent Indication: Rule Out Septal Defect Agent/Amount Used: Agitated Saline 8mL 2D DIMENSIONS RVDd3.5 (2.9-3.5cm)Left Atrium(2D)3.2 (1.6-4.0cm) IVSd0.9 (0.7-1.1cm)Aortic Root(2D)3.2 (2.0-3.7cm) LVDd4.5 (3.9-5.9cm)LVOT Diameter2.4 (1.8-2.4cm) PWd1.0 (0.7-1.1cm)LVDs2.8 (2.5-4.0cm) FS (%) 38.3 %SV64.4 ml Aortic Valve AoV Peak Cristo.122.7cm/sAoV VTI20.7cm AO Peak GR.6.0mmHgLVOT Peak Cristo.116.5cm/s AO Mean GR.4mmHgAVA (VMAX)4.30cm2 Mitral Valve MV E Axadckhn29.8cm/sMV E Peak Gr.2mmHg MV DECEL [id number] A Woyzisec61.1cm/s MV E Mean Gr.1mmHgE/A Ratio0.8 MV A [id number] Pulmonary Valve PV Peak Bzerajtw217.8cm/s Tricuspid Valve TR P. Dcvmmwyf022bt/sTR Peak Gr.28mmHg Pulmonary Vein S1 Xwlwlmft18.9cm/sD2 Gyrxtalu62.5cm/s PVa [id number] LEFT VENTRICLE The left ventricle is normal size. There is normal left ventricular wall thickness. The left ventricu lar systolic function is normal and the ejection fraction is within normal range. The Ejection Fracti on is 60-65%. There is normal LV segmental wall motion. Transmitral Doppler flow pattern is Grade I-a bnormal relaxation pattern. RIGHT VENTRICLE The right ventricle is normal size. There is normal right ventricular wall thickness. The right ventr icular systolic function is normal. ATRIA The left atrium size is normal. The right atrium size is normal. The interatrial septum is intact wit h no evidence for an atrial septal defect or patent foramen ovale as noted on 2-D or Doppler imaging. Injection of bubbles documented no interatrial shunt. AORTIC VALVE The aortic valve is mildly thickened. The aortic valve is trileaflet. Doppler and Color Flow revealed no significant aortic regurgitation. There is no significant aortic valvular stenosis. MITRAL VALVE The mitral valve leaflets are mildly thickened. There is no evidence of mitral valve prolapse. There is no mitral valve stenosis. Doppler and Color Flow revealed trace mitral regurgitation. TRICUSPID VALVE Doppler and Color Flow revealed trace tricuspid regurgitation. The pulmonary artery systolic pressure is estimated at 31 mmHg. PULMONIC VALVE The pulmonic valve is not well visualized but appears to open well. Doppler and Color Flow revealed m inimal pulmonic valvular regurgitation. There is no pulmonic valvular stenosis by spectral Doppler. GREAT VESSELS The aortic root is normal in size. The ascending aorta is normal in size. The pulmonary artery is nor mal. The IVC is normal in size and collapses >50% with inspiration. PERICARDIAL EFFUSION There is no evidence of significant pericardial effusion. Critical Notification Critical Value: No <Conclusion> The left ventricle is normal size. The left ventricular systolic function is normal and the ejection fraction is within normal range. The Ejection Fraction is 60-65%. The interatrial septum is intact with no evidence for an atrial septal defect or patent foramen ovale as noted on 2-D or Doppler imaging. Injection of bubbles documented no interatrial shunt. There is no significant aortic valvular stenosis. Doppler and Color Flow revealed no significant aortic regurgitation. Doppler and Color Flow revealed trace mitral regurgitation. Doppler and Color Flow revealed trace tricuspid regurgitation. The pulmonary artery systolic pressure is estimated at 31 mmHg.
== END 2016-09-30 11:45 | disposition home or self-care (01) | DRG 74 ==
LOC: ER 12:46 → 6 SOUTH 14:35
PROVIDERS: ADMIT Internal Medicine; ATTEND Internal Medicine
DX: G62.9 Polyneuropathy, unspecified (principal); R20.0 Anesthesia of skin; M54.2 Cervicalgia; M19.90 Unspecified osteoarthritis, unspecified site; K21.9 Gastro-esophageal reflux disease without esophagitis; E78.5 Hyperlipidemia, unspecified; G89.29 Other chronic pain; M54.5 Low back pain; I10 Essential (primary) hypertension; Z96.659 Presence of unspecified artificial knee joint; M47.812 Spondylosis without myelopathy or radiculopathy, cervical region; Z86.718 Personal history of other venous thrombosis and embolism; Z82.49 Family history of ischemic heart disease and other diseases of the circulatory system; Z79.82 Long term (current) use of aspirin; Z79.899 Other long term (current) drug therapy; Z79.1 Long term (current) use of non-steroidal anti-inflammatories (NSAID); Z79.2 Long term (current) use of antibiotics
CPT/HCPCS: 99285; C8929; 36415; 70450; 70551; 80048; 80053; 80061; 80307; 82607; 84484; 85027; 85610; 85730; 87641; 93005; 93880; J1650; G0479

== ENCOUNTER → 2016-10-24 | Outpatient (CLI) | payer OTHER ==
[2016-09-30 10:40] VITALS: BP 134/86
[~2016-10-24] MED LIST changes: +ACET-704 PO; +ACET650S19 PO; +GABA-585 PO; +GABA-586 PO; +IOHEXOL 300 MG/ML 50 ML VIAL. IT ONE; +LIDOCAINE 1% Multi-Dose 20 ML VIAL. ID ONE; +OMEP20TA63 PO
--- NOTE | 2016-10-24 15:20 | KCIC ---
Cervical spine CT History:Bilateral cervical radiculopathy and weakness for 2.5 years Technique: CT imaging was performed of the cervical spine after the injection for cervical myelogram. Multiplanar images are reviewed. Exposure: One or more of the following individualized dose reduction techniques were utilized for this examination: 1. Automated exposure control 2. Adjustment of the mA and/or kV according to patient size 3. Use of iterative reconstruction technique. Comparison: December 08, 2014 MRI cervical spine Findings: There is moderate to severe degenerative disc disease C6-7, minimally at C5-C6. Cervical vertebral body stature and AP alignment are maintained. Atlantoaxial distance is within normal limits. There is adequate alignment of lateral masses C1 relative to C2. Occipital condylar-C1 articulation is maintained. There is no significant abnormality of the cervical medullary junction. Cervical cord caliber is within normal limits. C2-3: Spinal canal and neural foramina are adequate. There is geih-ey-absbqrce right facet degenerative change. C3-4: There is mild to moderate facet degenerative change greater on the right. There is very minimal uncovertebral degenerative change. Spinal canal and neural foramina are adequate. C4-5: There is bilateral facet hypertrophic change. Spinal canal and neural foramina are adequate. C5-6: There is moderate to severe, left greater than right facet degenerative change. There is minimal disc osteophyte complex. Central canal is adequate 11 mm. Neural foramina are overall adequate. C6-7: There is minimal disc osteophyte complex. Spinal canal is adequate. There is mild bilateral uncovertebral degenerative change. There is moderate to severe facet degenerative change bilaterally. Neural foramina are overall adequate. C7-T1: Spinal canal and neural foramina are adequate. Impression: 1. There is moderate to severe degenerative disc disease, minimally at C5-C6. There is spondylosis at the same levels. There is no significant cervical spinal stenosis. 2. There is multilevel facet degenerative change, also mild uncovertebral degenerative change. There is no significant cervical neural foramina compromise. Electronically signed by: Bj Fernadnes MD (10/24/2016 3:17 PM) [facility]
--- NOTE | 2016-10-24 15:46 | KCIC ---
Cervical myelogram History: Cervical radiculopathy, weakness of both arms for 2 months Technique: Patient was informed of the risks to include pain, infection, bleeding, seizures, allergic reaction, nerve root injury. All questions were answered. Patient signed a written consent form for a cervical myelogram. The patient was placed in a prone oblique position. The patient was prepped and draped in the usual sterile fashion. 1% lidocaine was utilized for local anesthesia at the anticipated site of puncture of the right L2-L3 interlaminar space. A 19-gauge guiding needle was advanced into the soft tissues. Through the guiding needle, a 25 gauge Brittany needle was advanced until there was return of cerebral spinal fluid. Approximately 10 cc [id number] were then injected during fluoroscopic visualization. The needles were removed. Patient was repositioned so as to allow for the flow of contrast into the cervical spine. The patient was then transferred to the CT department for CT examination of the cervical spine. There were no immediate complications. Fluoroscopy time: 30 seconds, 7 fluoroscopic images and 1 lateral radiograph Findings: There is no evidence of myelographic block. There is multilevel cervical facet degenerative change. There is degenerative disc disease C6-7. There are very minimal anterior extradural defects such as C5-C6, C6-7, and C3-4 Impression: 1. There is multilevel cervical facet degenerative change. There is degenerative disc disease C6-7. Electronically signed by: Bj Fernandes MD (10/24/2016 3:43 PM) [id number]
== END | disposition home or self-care (01) ==
LOC: KCIC 13:19
PROVIDERS: ATTEND Neurological Surgery
DX: M47.22 Other spondylosis with radiculopathy, cervical region (principal); M50.121 Cervical disc disorder at C4-C5 level with radiculopathy; M50.122 Cervical disc disorder at C5-C6 level with radiculopathy; R53.1 Weakness
CPT/HCPCS: 72126; 72240; Q9967

== ENCOUNTER → 2017-04-18 | Outpatient (CLI) | payer OTHER ==
[2017-04-18] MEDS: GADOBUTROL 10 MMOL/10 ML VIAL IV ×2 (10:57)
== END | disposition home or self-care (01) ==
LOC: KCIC MRI 10:11
DX: M51.27 Other intervertebral disc displacement, lumbosacral region (principal); M48.07 Spinal stenosis, lumbosacral region; R20.2 Paresthesia of skin; Z98.890 Other specified postprocedural states
CPT/HCPCS: 72158; A9585

== ENCOUNTER → 2017-08-07 | Outpatient (CLI) | payer OTHER | END | disposition home or self-care (01) | LOC: PNCL 07:30 | DX: M50.123 Cervical disc disorder at C6-C7 level with radiculopathy (principal); M51.16 Intervertebral disc disorders with radiculopathy, lumbar region; M47.896 Other spondylosis, lumbar region; M96.1 Postlaminectomy syndrome, not elsewhere classified; M47.892 Other spondylosis, cervical region | CPT/HCPCS: 99212 ==

== ENCOUNTER → 2017-08-21 | Outpatient (CLI) | payer OTHER ==
[~2017-08-21] MED LIST changes: -ACET-704 PO; -ACET500T68 PO; -ACET650S19 PO; -ASPI-482 PO; -CELE200C PO; -ESOM40CA PO; -GABA-585 PO; -GABA-586 PO; -HYDR-2762 PO; +IOHEXOL 180 MG/ML 10 ML VIAL.; -IOHEXOL 300 MG/ML 50 ML VIAL. IT ONE; -LIDOCAINE 1% Multi-Dose 20 ML VIAL. ID ONE; +LIDOCAINE 1% PF 2 ML VIAL.; -OMEP20TA63 PO; +methylPREDNISolone ACETATE 40 MG/ML VIAL.; +methylPREDNISolone ACETATE 80 MG/ML VIAL.
== END ==
LOC: PNCL 07:28
DX: M50.10 Cervical disc disorder with radiculopathy, unspecified cervical region (principal); M47.22 Other spondylosis with radiculopathy, cervical region; M19.90 Unspecified osteoarthritis, unspecified site; K21.9 Gastro-esophageal reflux disease without esophagitis; G62.9 Polyneuropathy, unspecified; K44.9 Diaphragmatic hernia without obstruction or gangrene; K22.70 Barrett's esophagus without dysplasia; Z98.890 Other specified postprocedural states; Z86.14 Personal history of Methicillin resistant Staphylococcus aureus infection; Z82.49 Family history of ischemic heart disease and other diseases of the circulatory system
CPT/HCPCS: 62321; J1030; J1040; Q9965

== ENCOUNTER → 2018-11-27 | Outpatient (CLI) | payer MEDICARE, OTHER ==
[~2018-11-27] MED LIST changes: +ACET-704 PO; +ACET500T68 PO; +ACET650S PO; +ASPI-482 PO; +CELE200C PO; +ESOM40CA PO; +GABA-585 PO; +GABA300C18 PO; +HYDR-2765 PO; -IOHEXOL 180 MG/ML 10 ML VIAL.; -LIDOCAINE 1% PF 2 ML VIAL.; +OMEP20TA63 PO; +TRAM50TA PO; -methylPREDNISolone ACETATE 40 MG/ML VIAL.; -methylPREDNISolone ACETATE 80 MG/ML VIAL.
--- NOTE | 2018-11-27 12:26 | KCIC ---
MRI of the cervical spine without contrast 11/27/2018 CLINICAL HISTORY: Chronic neck pain with bilateral arm numbness. TECHNIQUE: Unenhanced T1-weighted, T2-weighted and inversion recovery sagittal and gradient echo and T2-weighted axial images of the cervical spine were obtained. FINDINGS: Comparison is made to a CT cervical myelogram dated 10/23/2016. Additional comparison is made to an MRI of the cervical spine dated 12/08/2014. Very mild lateral curvature of the cervical spine is seen convex to the left. There is straightening of the normal cervical lordosis. Degenerative signal changes are seen involving all of the disks of the cervical spine. Loss of height of the C4-5, C5-6 and C6-7 discs is noted. Degenerative signal changes are seen within the marrow surrounding these discs. No area of abnormal signal intensity is seen involving the cervical spinal cord. At the C2-3, C3-4 and C4-5 disc spaces there are minimal to mild generalized disc bulges. Degenerative changes are seen involving the uncovertebral and facet joints bilaterally. These findings do not result in significant central spinal canal or neural foraminal stenosis. At the C5-6 disc space there is a mild generalized disc bulge. Superimposed on this disc bulge is a left paracentral focal disc protrusion. This measures 3 mm in AP diameter. Degenerative changes are seen involving the uncovertebral and facet joints bilaterally. These findings when combined result in mild left greater than right central spinal canal stenosis without evidence of cord impingement. No neural foraminal stenosis is seen. At the C6-7 disc space there is a mild generalized disc bulge. This is eccentric to the left. Degenerative changes are seen involving the uncovertebral and facet joints, left greater than right. These findings when combined do not result in significant central spinal canal stenosis. Very mild left neural foraminal stenosis is seen. The right neural foramen is patent. At the C7-T1 disc space there is a minimal generalized disc bulge. Degenerative changes are seen involving the facet joints bilaterally. These findings when combined do not result in significant central spinal canal or neural foraminal stenosis. IMPRESSION: Degenerative changes are seen throughout the cervical spine. These findings result in mild left greater than right central spinal canal stenosis without evidence of cord impingement at C5-6. Very mild left neural foraminal stenosis is seen at C6-7. Electronically signed by: Keo Heart MD (11/27/2018 12:23 PM) [facility]-KCIC1
--- NOTE | 2018-11-27 17:41 | KCIC ---
Examination: CT MAXILLOFACIAL WO CONTRAST History: Chronic bilateral maxillary and periorbital pain and throbbing Comparison/Correlation: None Findings: Axial images of the maxillofacial structures were obtained. Sagittal and coronal reformatted images were provided. Mucosal thickening of ethmoid air cells is noted. Small left maxillary sinus mucosal retention cyst is present. Minimal mucosal thickening involving the left sphenoid mild mucosal thickening of the left maxillary sinus ostium is noted. Frontal sinuses are clear. Mastoid air cells are unremarkable. Subchondral degenerative cystic involvement of the right mandibular condyle is present. Mild narrowing of the right temporomandibular joint is present. No fracture or bony destructive findings. Globes and optic nerves are unremarkable. Extraocular muscles are grossly unremarkable. Impression: Chronic paranasal sinusitis. No findings of acute sinusitis. Mild degenerative changes of the right temporomandibular joint. PQRS Compliance Statement: One or more of the following individualized dose reduction techniques were utilized for this examination: 1. Automated exposure control 2. Adjustment of the mA and/or kV according to patient size 3. Use of iterative reconstruction technique Electronically signed by: Stevie Weeks MD (11/27/2018 5:38 PM) [facility]
== END | disposition home or self-care (01) ==
LOC: KCIC MRI 10:04
PROVIDERS: ATTEND Family Medicine
DX: M47.892 Other spondylosis, cervical region (principal); M48.02 Spinal stenosis, cervical region; J32.8 Other chronic sinusitis; M27.40 Unspecified cyst of jaw
CPT/HCPCS: 70486; 72141

== ENCOUNTER 2019-05-25 14:46 | Emergency (ER) | payer MEDICARE, OTHER ==
[~2019-05-25] VITALS: Ht 177.8 cm; Wt 95.4 kg
[2019-05-25 15:47] LABS: BASO % 1 % (0-3); EOS % 1 % (0-3); HEMATOCRIT 40.6 % (39.0-53.0); HEMOGLOBIN 13.8 g/dL (13.0-17.5); LYMPH # 1.3 x10^3/uL (1.0-4.8); LYMPH % 16 % (24-48); MEAN CORPUSCULAR HEMOGLOBIN 31 pg (25-35); MEAN CORPUSCULAR HGB CONC 34 g/dL (31-37); MEAN CORPUSCULAR VOLUME 91 fL (79-100); MONO # 0.4 x10^3/uL (0.0-1.1); MONO % 4 % (0-9); NEUT # 6.4 x10^3/uL (1.8-7.7); NEUT % 79 % (31-73); PLATELET COUNT 202 x10^3/uL (140-400); RED BLOOD COUNT 4.45 x10^6/uL (4.30-5.70); RED CELL DISTRIBUTION WIDTH 12.8 % (11.5-14.5); WHITE BLOOD COUNT 8.1 x10^3/uL (4.0-11.0)
[2019-05-25 15:56] LABS: CALCIUM 9.2 mg/dL (8.5-10.1); CREATININE 0.8 mg/dL (0.7-1.3); GFR 99.6; POTASSIUM 4.4 mmol/L (3.5-5.1)
[2019-05-25 16:01] LABS: ALBUMIN 4.2 g/dL (3.4-5.0); ALBUMIN/GLOBULIN RATIO 1.2 (1.0-1.7); TOTAL BILIRUBIN 0.3 mg/dL (0.2-1.0); TOTAL PROTEIN 7.6 g/dL (6.4-8.2)
--- NOTE | 2019-05-25 16:18 | RAD ---
Examination: CHEST AP ONLY History: Cough Comparison: None. Findings: AP portable upright frontal view of the chest was obtained. Postoperative cervical spine fusion is seen. The cardiomediastinal silhouette is normal. Lungs are clear. There is no pneumothorax. No pleural effusion is appreciated. No acute bone abnormality. IMPRESSION: No acute cardiopulmonary process. Electronically signed by: Stevie Weeks MD (05/25/2019 4:15 PM) [id number]
[2019-05-25 16:25] LABS: INFLUENZA A PATIENT NEGATIVE (NEGATIVE); INFLUENZA B PATIENT NEGATIVE (NEGATIVE)
--- NOTE | 2019-05-25 16:25 | PHYS DOC ---
Past Medical History Past Medical History: Arthritis, GERD, Other Additional Past Medical Histor: DVT Past Surgical History: Knee Replacement, Other Additional Past Surgical Histo: right shoulder, lower back, 2 hand surgeries,NECK Smoking Status: Never Smoker Alcohol Use: Occasionally Drug Use: None Adult General Chief Complaint Chief Complaint: SHORTNESS OF BREATH HPI HPI Patient is a 59 year old male presented to the ED with a chief complaint of c ough and shortness of breath. Patient states that he had a surgery on April 21, 2019 where he had his cervical vertebrae fused through an anterior approach. Patient states that since then he has had increased nasal congestion and cough and shortness of breath. He talked his physician today was concerned about a pulmonary embolism and sent him to the ER for further evaluation and treatment. Review of Systems Review of Systems Patient denies fever, chills, nausea, vomiting, diarrhea, dysuria, chest pain, abdominal pain, headache. Patient does complain of cough and shortness of breath. All other systems were reviewed and found to be within normal limits, except as documented in this note. Current Medications Current Medications Current Medications Medications (Trade) Dose Ordered Sig/Spencer Start Time Stop Time Status Last Admin Dose Admin Iohexol (Omnipaque 350 Mg/ml) 100 ml 1X ONCE 05/25/19 16:45 05/25/19 16:46 DC Sodium Chloride 1,000 ml @ 1,000 mls/hr 1X ONCE 05/25/19 16:30 05/25/19 17:29 DC 05/25/19 16:30 1,000 MLS/HR Allergies Allergies Allergies Coded Allergies Type Severity Reaction Last Updated Verified No Known Drug Allergies 12/28/14 No Physical Exam Physical Exam Constitutional: Well developed, well nourished, no acute distress, non-toxic appearance. [] HENT: Normocephalic, atraumatic Eyes: PERRLA, EOMI Neck: Normal range of motio. Healing incision wound on the right side of the neck Cardiovascular:Heart rate regular rhythm, no murmur [] Lungs & Thorax: Bilateral breath sounds clear to auscultation [] Abdomen: Bowel sounds normal, soft, no tenderness Extremities: No tenderness, no cyanosis, no clubbing, ROM intact, no edema. [] Neurologic: Alert and oriented X 3 Current Patient Data Vital Signs Vital Signs Date Time Temp Pulse Resp B/P (MAP) Pulse Ox O2 Delivery O2 Flow Rate FiO2 3/31/20 16:55 86 136/94 (108) 95 Room Air 05/25/19 15:18 99.2 20 99.2 Lab Values Laboratory Tests Test 05/25/19 15:30 05/25/19 15:35 Influenza Type A Antigen Negative (NEGATIVE) Influenza Type B Antigen Negative (NEGATIVE) White Blood Count 8.1 x10^3/uL (4.0-11.0) Red Blood Count 4.45 x10^6/uL (4.30-5.70) Hemoglobin 13.8 g/dL (13.0-17.5) Hematocrit 40.6 % (39.0-53.0) Mean Corpuscular Volume 91 fL (79-100) Mean Corpuscular Hemoglobin 31 pg (25-35) Mean Corpuscular Hemoglobin Concent 34 g/dL (31-37) Red Cell Distribution Width 12.8 % (11.5-14.5) Platelet Count 202 x10^3/uL (140-400) Neutrophils (%) (Auto) 79 % (31-73) H Lymphocytes (%) (Auto) 16 % (24-48) L Monocytes (%) (Auto) 4 % (0-9) Eosinophils (%) (Auto) 1 % (0-3) Basophils (%) (Auto) 1 % (0-3) Neutrophils # (Auto) 6.4 x10^3/uL (1.8-7.7) Lymphocytes # (Auto) 1.3 x10^3/uL (1.0-4.8) Monocytes # (Auto) 0.4 x10^3/uL (0.0-1.1) Eosinophils # (Auto) 0.0 x10^3/uL (0.0-0.7) Basophils # (Auto) 0.0 x10^3/uL (0.0-0.2) D-Dimer (Lorna) 0.64 ug/mlFEU (0.00-0.50) H Sodium Level 143 mmol/L (136-145) Potassium Level 4.4 mmol/L (3.5-5.1) Chloride Level 105 mmol/L (98-107) Carbon Dioxide Level 30 mmol/L (21-32) Anion Gap 8 (6-14) Blood Urea Nitrogen 17 mg/dL (8-26) Creatinine 0.8 mg/dL (0.7-1.3) Estimated GFR (Cockcroft-Gault) 99.6 BUN/Creatinine Ratio 21 (6-20) H Glucose Level 146 mg/dL (70-99) H Lactic Acid Level 1.0 mmol/L (0.4-2.0) Calcium Level 9.2 mg/dL (8.5-10.1) Total Bilirubin 0.3 mg/dL (0.2-1.0) Aspartate Amino Transferase (AST) 19 U/L (15-37) Alanine Aminotransferase (ALT) 30 U/L (16-63) Alkaline Phosphatase 75 U/L (46-116) Total Protein 7.6 g/dL (6.4-8.2) Albumin 4.2 g/dL (3.4-5.0) Albumin/Globulin Ratio 1.2 (1.0-1.7) Laboratory Tests 05/25/19 15:35 Laboratory Tests 05/25/19 15:35 EKG EKG [] Radiology/Procedures Radiology/Procedures [] Impressions: Chest x-ray does not show any acute disease. CT chest is negative for PE. Course & Med Decision Making Course & Med Decision Making Pertinent Labs and Imaging studies reviewed. (See chart for details) Ordered labs, chest x-ray, IV. Patient's vital signs are stable. Action saturation was 97% on room air when patient is sitting down. Chest x-ray does not show any acute disease. Ordered CT PE study. CT chest was negative for PE. Patient has no respiratory distress and oxygen saturation is still at 97% on room air. Patient can be discharged home for outpatient follow-up. Discussed results and plan of care with patient. Patient is instructed to follow up with PCP in one to 2 days. Appropriate discharge instructions given to patient to return to the ED or to seek immediate medical evaluation. Patient is instructed to return to the ED if symptoms worsen or if any concerns. Dragon Disclaimer Dragon Disclaimer This electronic medical record was generated, in whole or in part, using a voice recognition dictation system. Departure Departure Impression: Primary Impression: Dyspnea Disposition: HOME, SELF-CARE Condition: STABLE Referrals: DELANEY ACEVEDO DO (PCP) Patient Instructions: Shortness of Breath VIPIN CASILLAS DO May 25, 2019 16:25
[2019-05-25] MEDS ORDERED: IV NORMAL SALINE 1000ML BAG 1,000 ML IV ONE (16:30)
[2019-05-25] MEDS ORDERED: IOHEXOL 350 MG/ML 100 ML VIAL. IV ONE (16:45)
[2019-05-25 16:55] VITALS: BP 136/94
--- NOTE | 2019-05-25 17:08 | RAD ---
Examination: CT ANGIOGRAPHY CHEST History: Shortness of breath, postoperative Comparison/Correlation: 05/25/2019 AP view of the chest Findings: Axial images of chest were obtained following IV contrast according to pulmonary arteriography protocol. Sagittal and coronal reformatted images were provided. Maximum intensity projection imaging was performed. Tracheobronchial tree is unremarkable. No pneumothorax. No infiltrate or pleural effusion. No pericardial effusion. Small hiatal hernia is present. Thoracic aorta is unremarkable. No enlarged thoracic lymph nodes. Bony structures are unremarkable. Impression: No PE. No infiltrate. Hiatal hernia. PQRS Compliance Statement: One or more of the following individualized dose reduction techniques were utilized for this examination: 1. Automated exposure control 2. Adjustment of the mA and/or kV according to patient size 3. Use of iterative reconstruction technique Electronically signed by: Stevie Weeks MD (05/25/2019 5:05 PM) [id number]
== END 2019-05-25 17:44 | disposition home or self-care (01) ==
LOC: ER 14:46
DX: R05 Cough (principal); R09.81 Nasal congestion; R06.02 Shortness of breath; K21.9 Gastro-esophageal reflux disease without esophagitis
CPT/HCPCS: 36415; 71045; 71275; 80053; 83605; 85025; 85379; 87804; 99285; J7030

== ENCOUNTER → 2020-07-28 | Outpatient (CLI) | payer MEDICARE, OTHER ==
--- NOTE | 2020-07-28 17:36 | KCIC ---
Esophagram 07/28/2020 CLINICAL HISTORY: Chronic reflux. Dysphagia. TECHNIQUE: An esophagram was performed under fluoroscopic control. The total fluoroscopic time is 3 m inutes 40 seconds. 6 digital spot radiographs were obtained. FINDINGS: The swallowing mechanism is within normal limits. No laryngeal penetration or aspiration is seen. The mucosal pattern of the hypopharynx, esophagus and GE junction is within normal limits. The re is a very small sliding hiatal hernia. There is moderate esophageal dysmotility. The patient has a poor primary stripping wave with tertiary contractions of the esophagus noted. No definite gastroeso phageal reflux is noted. IMPRESSION: 1. Very small sliding hiatal hernia. 2. Moderate esophageal dysmotility. Electronically signed by: Keo Heart MD (07/28/2020 5:33 PM) [id number]
== END ==
LOC: KCIC 09:17
PROVIDERS: ATTEND Internal Medicine Gastroenterology
DX: K21.9 Gastro-esophageal reflux disease without esophagitis (principal); K44.9 Diaphragmatic hernia without obstruction or gangrene
CPT/HCPCS: 74220

== ENCOUNTER 2021-04-19 06:02 | Day surgery (SDC) | payer MEDICARE, OTHER ==
[~2021-04-19] VITALS: Ht 177.8 cm; Wt 96.0 kg
[~2021-04-19 06:02] MED LIST changes: +ACET325T21 PO; +ATOR20TA58 PO; +CYCL1DRO OP; +HYDROmorphone 2 MG/ML INJ. IVP PRN; +IV RINGERS,LACTATED 1000ML 1,000 ML IV SCH; +LEVO5TAB29 PO; +OMEP20CA16 PO; +PROCHLORPERAZINE 10 MG/2 ML VIAL. IVP PRN; +RIVA20TA2 PO; +fentaNYL PF VIAL 100 MCG/2 ML VIAL IVP PRN
[2021-04-19 06:30] VITALS: BP 111/70
--- NOTE | 2021-04-19 06:34 | NUR ---
GAVE 1.5CC OF AGENT GREEN @ [address] CHINCHILLA'S ORDERS.
[2021-04-19] MEDS ORDERED: ACETAMINOPHEN 500 MG TABLET PO PRN (07:00)
[2021-04-19] MEDS ORDERED: PROPOFOL 10 MG/ML (20ML) VIAL. IV ONE (07:01)
[2021-04-19] MEDS ORDERED: BUPIVACAINE-EPI 0.5% 30 ML VIAL KIT. ONE (07:02)
[2021-04-19] MEDS ORDERED: SURGICEL HEMOSTAT 4X8 EACH. ONE (07:02)
[2021-04-19] MEDS ORDERED: NEOSTIGMINE METHYLSULFATE 5 MG/5 ML SYRINGE. ONE (07:07)
[2021-04-19] MEDS ORDERED: fentaNYL PF VIAL 100 MCG/2 ML VIAL ONE (07:07)
[2021-04-19] MEDS ORDERED: DEXAMETHASONE SOD PHOS 4 MG/ML VIAL ONE (07:08)
[2021-04-19] MEDS ORDERED: GLYCOPYRROLATE 1 MG/5 ML VIAL. ONE (07:08)
[2021-04-19] MEDS ORDERED: ROCURONIUM 50 MG/5 ML VIAL. ONE (07:08)
[2021-04-19] MEDS ORDERED: ONDANSETRON PF 4 MG/2 ML VIAL. ONE (07:09)
[2021-04-19] MEDS ORDERED: LIDOCAINE 2% PF 5 ML VIAL. ONE (07:09)
--- NOTE | 2021-04-19 07:33 | PDOC1 ---
History and Physical Date of Admission Date of Admission DATE: 04/19/21 TIME: 07:30 Identification/Chief Complaint Chief Complaint Abdominal pain Source Source: Patient History of Present Illness History of Present Illness 61-year-old male with complaints of abdominal pain right upper quadrant bloating diarrhea pain radiates to his back especially after eating. Ultrasound showed no gallstones in the gallbladder but HIDA scan showed borderline ejection fraction with recurrence of his symptoms at the time of injection Past Medical History GI: GERD, Hemorrhoids Heme/Onc: Other (Blood clots) Rheumatologic: Rheumatoid arthritis Past Surgical History Past Surgical History: Total knee replacement Family History Family History: No Significant, Hypertension Social History ALCOHOL: none Drugs: None Current Medications Current Medications Current Medications Fentanyl Citrate (Fentanyl 2ml Vial) 25 mcg PRN Q5MIN PRN IVP MILD PAIN 1-3; Start 04/19/21 at 06:00; Stop 04/20/21 at 05:59 Fentanyl Citrate (Fentanyl 2ml Vial) 50 mcg PRN Q5MIN PRN IVP MODERATE PAIN 4- 6; Start 04/19/21 at 06:00; Stop 04/20/21 at 05:59 Morphine Sulfate (Morphine Sulfate) 1 mg PRN Q10MIN PRN IVP SEVERE PAIN 7-10; Start 04/19/21 at 06:00; Stop 04/20/21 at 05:59 Ringer's Solution 1,000 ml @ 30 mls/hr Q24H IV Last administered on 04/19/21at 06:33; Start 04/19/21 at 06:00; Stop 04/19/21 at 17:59 Hydromorphone HCl (Dilaudid) 0.5 mg PRN Q10MIN PRN IVP SEVERE PAIN 7-10, 2nd CHOICE; Start 04/19/21 at 06:00; Stop 04/20/21 at 05:59 Prochlorperazine Edisylate (Compazine) 5 mg PACU PRN PRN IVP NAUSEA, MRX1; Start 04/19/21 at 06:00; Stop 04/20/21 at 05:59 Acetaminophen (Tylenol) 1,000 mg 1X PREOP PRN PO PRIOR TO PROCEDURE Last administered on 04/19/21at 06:34; Start 04/19/21 at 07:00 Cefazolin Sodium/ Dextrose 50 ml @ 100 mls/hr 1X PREOP PRN IV PRIOR TO PROCEDURE; Start 04/19/21 at 06:00; Stop 04/19/21 at 18:00 Propofol (Diprivan) 200 mg STK-MED ONCE IV ; Start 04/19/21 at 07:01; Stop 04/19/21 at 07:01; Status DC Bupivacaine HCl/ Epinephrine Bitart (Sensorcain-Epi 0.5% Kit) 30 ml STK-MED ONCE .ROUTE ; Start 04/19/21 at 07:02; Stop 04/19/21 at 07:02; Status DC Cellulose (Surgicel Hemostat 4x8) 1 each STK-MED ONCE .ROUTE ; Start 04/19/21 at 07:02; Stop 04/19/21 at 07:02; Status DC Fentanyl Citrate (Fentanyl 2ml Vial) 100 mcg STK-MED ONCE .ROUTE ; Start 04/19/21 at 07:07; Stop 04/19/21 at 07:07; Status DC Neostigmine [place] (Neostigmine Methylsulfate) 5 mg STK-MED ONCE .ROUTE ; Start 04/19/21 at 07:07; Stop 04/19/21 at 07:08; Status DC Rocuronium [place] (Zemuron) 50 mg STK-MED ONCE .ROUTE ; Start 04/19/21 at 07:08; Stop 04/19/21 at 07:08; Status DC Glycopyrrolate (Robinul) 1 mg STK-MED ONCE .ROUTE ; Start 04/19/21 at 07:08; Stop 04/19/21 at 07:08; Status DC Dexamethasone Sodium Phosphate (Decadron) 4 mg STK-MED ONCE .ROUTE ; Start 04/19/21 at 07:08; Stop 04/19/21 at 07:09; Status DC Ondansetron HCl (Zofran) 4 mg STK-MED ONCE .ROUTE ; Start 04/19/21 at 07:09; Stop 04/19/21 at 07:09; Status DC Lidocaine HCl (Lidocaine Pf 2% Vial) 5 ml STK-MED ONCE .ROUTE ; Start 04/19/21 at 07:09; Stop 04/19/21 at 07:09; Status DC Active Scripts Active Reported Restasis (Cyclosporine) 1 Each Droperette 1 Each OP HS Omeprazole 20 Mg Capsule.dr 20 Mg PO BID Acetaminophen 325 Mg Tablet 650 Mg PO PRN DAILY PRN Xyzal (Levocetirizine Dihydrochloride) 5 Mg Tablet 5 Mg PO PRN DAILY PRN Xarelto (Rivaroxaban) 20 Mg Tablet 1 Tab PO QHS 30 Days with food Atorvastatin Calcium 20 Mg Tablet 20 Mg PO HS Gabapentin (Gabapentin) 300 Mg Capsule 100 Mg PO HS PRN Allergies Allergies: Coded Allergies: adhesive tape (Verified Adverse Reaction, Intermediate, Rash, 04/19/21) BREAKS OUT ROS General: No: Chills, Night Sweats, Fatigue, Malaise, Appetite, Other PSYCHOLOGICAL ROS: No: Anxiety, Behavioral Disorder, Concentration difficultie, Decreased libido, Depression, Disorientation, Hallucinations, Hostility, Irritablity, Memory difficulties, Mood Swings, Obsessive thoughts, Physical abuse, Sexual abuse, Sleep disturbances, Suicidal ideation, Other Eyes: No Blurry vision, No Decreased vision, No Double vision, No Dry eyes, No Excessive tearing, No Eye Pain, No Itchy Eyes, No Loss of vision, No Photophobia, No Scotomata, No Uses contacts, No Uses glasses, No Other HEENT: No: Heacaches, Visual Changes, Hearing change, Nasal congestion, Nasal discharge, Oral lesions, Sinus pain, Sore Throat, Epistaxis, Sneezing, Snoring, Tinnitus, Vertigo, Vocal changes, Other ALLERGY AND IMMUNOLOGY: No: Hives, Insect Bite Sensitivity, Itchy/Watery Eyes, Nasal Congestion, Post Nasal Drip, Seasonal Allergies, Other Hematological and Lymphatic: No: Bleeding Problems, Blood Clots, Blood Transfusions, Brusing, Night Sweats, Pallor, Swollen Lymph Nodes, Other ENDOCRINE: No: Breast Changes, Galactorrhea, Hair Pattern Changes, Hot Flashes, Malaise/lethargy, Mood Swings, Palpitations, Polydipsia/polyuria, Skin Changes, Temperature Intolerance, Unexpected Weight Changes, Other Gastrointestinal: Yes Abdominal Pain, Yes Diarrhea Genitourinary: No Dysuria, No Frequency, No Incontinence, No Hematuria, No Retention, No Discharge, No Urgency, No Pain, No Flank Pain, No Other, No , No , No , No , No , No , No Musculoskeletal: No Gait Disturbance, No Joint Pain, No Joint Stiffness, No Joint Swelling, No Muscle Pain, No Muscular Weakness, No Pain In:, No Swelling In:, No Other Neurological: No Behavorial Changes, No Bowel/Bladder ControlChng, No Confusion, No Dizziness, No Gait Disturbance, No Headaches, No Impaired Coord/ balance, No Memory Loss, No Numbness/Tingling, No Seizures, No Speech Problems, No Tremors, No Visual Changes, No Weakness, No Other Skin: No Dry Skin, No Eczema, No Hair Changes, No Lumps, No Mole Changes, No Mottling, No Nail Changes, No Pruritus, No Rash, No Skin Lesion Changes, No Other, No Acne Physical Exam General: Alert, Oriented X3, Cooperative, No acute distress HEENT: Atraumatic, PERRLA, EOMI Lungs: Clear to auscultation, Normal air movement Heart: RRR, no murmurs Abdomen: Normal bowel sounds, Soft, Other (Mildly tender right upper quadrant) Rectal Exam: not examined Extremities: No edema Skin: No significant lesion Neuro: Normal speech Psych/Mental Status: Mental status NL Vitals Vitals Vital Signs Date Time Temp Pulse Resp B/P (MAP) Pulse Ox O2 Delivery O2 Flow Rate FiO2 04/19/21 06:30 97.7 60 20 97 97.7 04/19/21 06:16 111/70 Room Air VTE Prophylaxis Ordered VTE Prophylaxis Devices: Yes VTE Pharmacological Prophylaxi: Contraindicated Assessment/Plan Assessment/Plan Biliary dyskinesia plan laparoscopic cholecystectomy Justifications for Admission Other Justification RABIA CHINCHILLA MD Apr 19, 2021 07:33
[2021-04-19] MEDS ORDERED: KETOROLAC 30 MG/ML VIAL. ONE (07:54)
--- NOTE | 2021-04-19 08:19 | PDOC4 ---
Operative Note Operative Note Date: April 192021 at 8:16 AM Preoperative diagnosis: Biliary dyskinesia Postoperative diagnosis: Same Procedure: Laparoscopic cholecystectomy with fluorescein cholangiography Surgeon: Roland Specimen: Gallbladder Track Liner Operator: None Dictation: Patient is a 61-year-old male has had right upper quadrant abdominal pain postprandial nausea and abnormal HIDA scan. Procedure of laparoscopic cholecystectomy was explained to the patient detail was benefits were also discussed including bleeding infection injury to intra-abdominal contents possible necessitating further open operations alternatives to this procedure also discussed with the patient he seemed to understand gave a verbal written consent to have procedure performed. Patient was taken to the operating room placed in the supine position general anesthesia was initiated once patient was sleeping intubated his abdomen was prepped and draped usual sterile fashion using ChloraPrep. An area just below the umbilicus was injected quarter percent Marcaine with epinephrine incision was made 11 blade scalpel and a varies needle was placed within the abdomen creating pneumoperitoneum once this was complete 11 mm port was placed in a 5 mm camera is placed within the abdomen which was inspected no other abnormalities were noted. 5 mm ports placed in the epigastrium a 5 mm port was placed in the right midabdomen and a 5 mm port was placed in the right lateral abdomen all under direct visualization. The dome of the gallbladder is grasped directed cephalad the infundibulum the gallbladder is grasped tract laterally exposing the triangle adherent tissues of the triangle were taken down blunt dissection exposing the cystic duct and cystic artery at this point fluorescein dye was visualized which showed dye within the cystic duct to the common bile duct no evidence of obstructions. The cystic duct was doubly clipped and transected the cystic artery was also clipped and transected the gallbladder was taken off the liver with electrocautery placed in Endo Catch bag moved umbilicus right upper quadrant was irrigated and suctioned dry he mostasis deemed appropriate pneumoperitoneum was reduced all ports removed the fascial defect at the umbilicus was closed with [id number] 0 Vicryl suture and skin was reapproximated with 4 subcuticular Monocryl Mastisol Steri-Strips and island dressings were applied. Patient was awakened and extubated operating room taken recovery in stable condition all sponge instrument needle counts listed as correct estimated blood loss 5 mL. RABIA CHINCHILLA MD Apr 19, 2021 08:18
[2021-04-19] MEDS ORDERED: OXYC-325 PO (08:21)
--- NOTE | 2021-04-19 08:22 | DISCH ---
DISCHARGE INSTRUCTIONS Condition on Discharge Condition on Discharge: Stable Activity After Discharge Activity Instructions for Disc: Avoid exertion Other activity instructions: No lifting more than 20 pounds for 2 Diet after Discharge Diet after Discharge: Low Fat Wound Incision Care Other wound/incision instructi: Halina shower in 24 hours Contacting the DRWilliam after DC Call your doctor for: If your condition worsens Follow-Up Follow up with: Dr. Chinchilla in 2-week RABIA CHINCHILLA MD Apr 19, 2021 08:22
[2021-04-19] MEDS ORDERED: MORPHINE SULFATE 2 MG/ML INJ. ONE (08:33)
[2021-04-19] MEDS: MORPHINE SULFATE 2 MG/ML INJ. IVP PRN ×2 (08:37→08:48)
[2021-04-19] MEDS ORDERED: HYDROmorphone 2 MG/ML INJ. ONE (08:55)
[2021-04-19 08:58] VITALS: BP 103/62
[2021-04-19] MEDS ORDERED: oxyCODONE/APAP 5/325 1 TAB TABLET PO ONE (09:00)
[2021-04-19] MEDS ORDERED: SEVOFLURANE 31 TO 60 MINUTES. IH ONE (14:38)
--- NOTE | 2021-04-20 17:07 | PATHOLOGY ---
[facility] Accession Number: [id number] . 01 Material submitted: . gallbladder - GALLBLADDER . 01 Clinical history: . CHOLECYSTITIS L/S CHOLECYSTECTOMY . 02 Diagnosis: Gallbladder, laparoscopic cholecystectomy: - Cholesterolosis, focal. - Chronic cholecystitis, mild. (NIXONM:mable; 04/20/2021) [facility] 04/20/2021 1019 Local . 02 Comment: There are no calculi identified within the gallbladder lumen or specimen container. There is no evidence of malignancy. (NIXONM:mable; 04/20/2021) . 02 Electronically signed: . Arsh Estrada MD, Pathologist NPI- [id number] . 01 Gross description: . Fixative: Formalin Labeled: Gallbladder Specimen received: A previously disrupted gallbladder Dimensions: 7.6 x 3.5 x 3.4 cm Serosa: Green-richard to pale yellow with a moderate amount of attached adipose tissue Lymph node: Not identified Mucosa: Velvety, bile-stained Average wall thickness: Up to 0.6 cm Calculi: None present within the specimen or specimen container Abnormalities: None identified . A1- [employer] Officer body, fundus, and the cystic duct margin. ([facility]; 04/19/2021) NRI/NRI 04/19/2021 2117 Local . 02 Pathologist provided ICD-10: K82.4, K81.1 . 02 CPT . 772010 Specimen Comment: A courtesy copy of this report has been sent to [phone], [phone] Specimen Comment: [id number], Specimen Comment: Report sent to , DR ACEVEDO / DR HUERTA Specimen Comment: A duplicate report has been generated due to demographic updates. Performed at: 01 [facility] [address] [facility] [address], [place] [id number] MD Scott Baer MD Phone: [phone] Performed at: 02 [facility] [address] [place], [place] [id number] MD Arsh Estrada MD Phone: [phone]
== END 2021-04-19 09:35 | disposition home or self-care (01) ==
LOC: SURG 06:02
PROVIDERS: ATTEND Surgery
DX: K82.4 Cholesterolosis of gallbladder (principal); K21.9 Gastro-esophageal reflux disease without esophagitis; M06.9 Rheumatoid arthritis, unspecified; E78.00 Pure hypercholesterolemia, unspecified; Z79.899 Other long term (current) drug therapy; Z98.890 Other specified postprocedural states; Z88.8 Allergy status to other drugs, medicaments and biological substances; Z82.49 Family history of ischemic heart disease and other diseases of the circulatory system
CPT/HCPCS: 47562; A4364; A4930; A6219; J0690; J1100; J1170; J1885; J2270; J2405; J2704; J2710; J3010; J3490; A4223; A4452; A4657